=== PATIENT | female | born 1935 | race Caucasian/White ===

== ENCOUNTER 2022-11-29 13:17 | Outpatient (CLI) | payer MEDICARE, BC, SELFPAY | END 2022-11-29 13:18 | disposition home or self-care (01) | LOC: AMB 12-05 09:27 | PROVIDERS: PCP Nurse Practitioner Family; Visit Provider Family Medicine | DX: S09.90XA Unspecified injury of head, initial encounter (principal); W01.190A Fall on same level from slipping, tripping and stumbling with subsequent striking against furniture, initial encounter; Y92.000 Kitchen of unspecified non-institutional (private) residence as the place of occurrence of the external cause | CPT/HCPCS: A0425; A0427 ==

== ENCOUNTER 2022-11-29 13:58 | Emergency (ER) | payer MEDICARE, BC, SELFPAY ==
[2022-11-29 14:01] VITALS: BP 149/83; PULSE 72; RESP 18; TEMP 36.8; O2SAT 94; BMI 25.8
--- NOTE | 2022-11-29 14:04 | CRLHL7_ITS ---
For Patients: As a result of the Cures Act, medical imaging exams and procedure reports are released immediately into your electronic medical record. You may view this report before your referring provider. If you have questions, please contact your health care provider. INDICATION: Trauma. TECHNIQUE: CT cervical spine without contrast. COMPARISON: None. FINDINGS: Vertebrae: Alignment is normal. There are no fractures or suspicious bony lesions. Discs and facet joints: There are diffuse degenerative changes in the disc spaces and facet joints. Extraspinal findings: Paraspinous soft tissues are unremarkable. IMPRESSION: 1. No sign of acute injury. 2. Multilevel degenerative spondylosis. Please note that all CT scans at this facility use dose modulation, iterative reconstruction, and/or weight-based dosing when appropriate to reduce radiation dose to as low as reasonably achievable. Dictated by Angeli Lorenzo MD @ 11/29/2022 3:25:02 PM (Electronically Signed)
--- NOTE | 2022-11-29 14:04 | CRLHL7_ITS ---
For Patients: As a result of the Century Cures Act, medical imaging exams and procedure reports are released immediately into your electronic medical record. You may view this report before your referring provider. If you have questions, please contact your health care provider. INDICATION: Fall. TECHNIQUE: CT head without contrast. COMPARISON: None. FINDINGS: CSF spaces: Within normal limits for age. Brain parenchyma and extra-axial spaces: The velazco-white differentiation is normal. No sign of mass, hemorrhage, or midline shift. No extra-axial fluid collection. Skull base and calvarium: Mucosal thickening in the left maxillary sinus. Otherwise, the visualized paranasal sinuses and mastoid air cells demonstrate no acute or significant findings. The visualized orbits are grossly unremarkable. No skull fractures. IMPRESSION: No intracranial hemorrhage identified. No skull fractures identified. Please note that all CT scans at this facility use dose modulation, iterative reconstruction, and/or weight-based dosing when appropriate to reduce radiation dose to as low as reasonably achievable. Dictated by Angeli Lorenzo MD @ 11/29/2022 3:22:29 PM (Electronically Signed)
--- NOTE | 2022-11-29 14:12 | ED.FALL ---
HPI - Fall General Date Seen: 11/29/22 Chief Complaint: Fall/Minor Trauma Stated Complaint: Fall Time Seen by Provider: 11/29/22 14:04 Source: patient, family, EMS, RN notes reviewed and old records reviewed Mode of arrival: EMS Limitations: no limitations and altered mental status History of Present Illness HPI Narrative: Patient is a very nice 86-year-old lady with suffers from moderate dementia. She was at home with her daughter, when she turned, and she caught her feet on the rug. And fell, striking the left side of her head, on drawer. No loss of consciousness, she has a laceration to left ear. She also has pain in her neck. She is brought in by EMS for assessment. She denies nausea, denies diplopia can not remember her daughter's name, but this is really normal. She is not on any blood thinners, glucose was 163. MD complaint: fall Onset (ago): minute(s) (20) Fall witnessed: yes, by family Place fall occurred: home Loss of consciousness: No Prolonged down time: no Symptoms prior to fall: none Context: tripped/slipped Location of injury: head and neck Severity: moderate Associated symptoms (after fall): denies Related Data Home Medications Medication Instructions Recorded Confirmed acetaminophen 325 mg tablet 325 mg PO PRN 11/24/21 11/24/21 calcium carbonate 1 tab PO PRN 11/24/21 11/24/21 estradiol 0.01% (0.1 mg/gram) 2 vaginal .3X Per Week 11/24/21 11/24/21 vaginal cream folic acid PO 11/24/21 11/24/21 gabapentin 600 mg tablet 600 mg PO TID 11/24/21 11/29/22 methotrexate sodium 2.5 mg tablet 2.5 mg PO .Every 7 Days 11/24/21 11/29/22 multivitamin (Multiple Vitamins 1 tab PO QDAY 11/24/21 11/29/22 tablet) omeprazole 20 mg tablet,delayed 20 mg PO QDAY 11/24/21 11/29/22 release carbidopa 25 mg-levodopa 100 mg 2 tab PO TID 11/29/22 11/29/22 tablet duloxetine 20 mg capsule,delayed 20 mg PO BID 11/29/22 11/29/22 release folic acid 1 mg tablet 1 mg PO DAILY 11/29/22 11/29/22 Previous Rx's Medication Instructions Recorded cephalexin 500 mg capsule 500 mg PO BID #14 caps 11/29/22 Allergies Allergy/AdvReac Type Severity Reaction Status Date / Time No Known Allergies Allergy Unknown Verified 11/29/22 14:01 Review of Systems Status of ROS: Reports: 10 or more systems reviewed and unremarkable except as noted in History and below PFSH PFS Medical History Parkinson's disease ?G20 - Parkinson's disease (ICD-10) Back problem ?M53.9 - Dorsopathy, unspecified (ICD-10) Arthritis ?M19.90 - Unspecified osteoarthritis, unspecified site (ICD-10) Rheumatoid arthritis ?M06.9 - Rheumatoid arthritis, unspecified (ICD-10) Incontinence ?R32 - Unspecified urinary incontinence (ICD-10) GERD (gastroesophageal reflux disease) ?K21.9 - Gastro-esophageal reflux disease without esophagitis (ICD-10) Surgical History 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.659 - Presence of unspecified artificial knee joint (ICD-10) Family History Mother Breast cancer Sister Breast cancer Father H/O cancer of gall bladder Paternal Grandfather Rectal cancer Social History Smoking Status: Former smoker Do you use any of these nicotine containing products: None Second hand tobacco smoke exposure: No How often do you have a drink containing alcohol: never How often do you have six or more drinks on one occasion: Never AUDIT-C Alcohol total score: 0 Non-prescribed substance use: denies use service: No Exam Narrative: Exam Narrative: Patient is seen in room 6, she is in no apparent distress, speaking to me normally, Knows person but not place or time. Pupils equal round reactive to light her TMs are normal, she has lacerations to her left the helix of her ear, these will need to be looked at closer, her neck has good range of motion, flexion extension some tenderness on the left lateral side. I do not see any tenderness or change in her shoulders, clavicles the upper arms move normally, oropharynx is normal. Chest is clear heart sounds are normal, she moves all extremities independently well her pelvis is normal stable her distal and proximal muscle strength is normal. Const: Vital Signs, click to edit/add: Vital Signs - 24 hr 11/29/22 14:01 Temperature 98.3 F Pulse Rate [Right Pulse Oximeter] 72 Respiratory Rate 18 Blood Pressure [Ri ght Upper Arm] 149/83 H Pulse Oximetry 94 Oxygen Delivery Me thod Room Air Course Course Hospital Course: I was able to repair the helix of the left ear, after using 0.25% bupivacaine, intradermal block. Wound was then cleaned out with normal saline x2 150 mL, there was some exposed and a tear within the cartilage of the ear length of the tear of the cartilage was approximately 3 cm, wound was approximately 3.5 cm, fortunately it was not a through and through laceration, as the back part of the skin of the helix was intact. Two simple 4-0 Vicryl sutures were used to approximate of cartilage. I then used 4 simple 4-0 sutures to approximate the dermal skin on the helix. Normal pressure dressing was applied to the he looks after 1st fashioning a dressing. Bacitracin was applied Vital Signs Vital signs: Initial Vital Signs Temperature 98.3 F 11/29/22 14:01 Temperature Source Temporal Artery Scan 11/29/22 14:01 Pulse Rate 72 11/29/22 14:01 Pulse Rhythm Regular 11/29/22 14:01 Pulse Strength 3+ Normal 11/29/22 14:01 Respiratory Rate 18 11/29/22 14:01 Blood Pressure 149/83 H 11/29/22 14:01 Blood Pressure Mean 105 11/29/22 14:01 Blood Pressure Position Sitting 11/29/22 14:01 Pulse Oximetry 94 11/29/22 14:01 Oxygen Delivery Method Room Air 11/29/22 14:01 Vital Signs Temperature 98.3 F 11/29/22 14:01 Pulse Rate 72 11/29/22 14:01 Respiratory Rate 18 11/29/22 14:01 Blood Pressure 149/83 H 11/29/22 14:01 Pulse Oximetry 94 11/29/22 14:01 Oxygen Delivery Method Room Air 11/29/22 14:01 Temperature 98.3 F 11/29/22 14:01 Pulse Rate 72 11/29/22 14:01 Respiratory Rate 18 11/29/22 14:01 Blood Pressure 149/83 H 11/29/22 14:01 Pulse Oximetry 94 11/29/22 14:01 Oxygen Delivery Method Room Air 11/29/22 14:01 MDM - Fall MDM Narrative Medical decision making narrative: Life-threatening differential diagnosis is considered include: Subarachnoid hemorrhage, subdural hemorrhage, epidural hemorrhage. Other differential diagnosis considered include concussion, closed head injury, or neck fracture. Medical Records Attestation: I reviewed the patient's medical records. Imaging Data CT scan - head: Attestation: I have reviewed the pertinent imaging results. My impression: Negative CT of head neck Radiologist's impression: Patient: [facility] Facility: [facility] Site . Site : 1935 Study: CT Head WITHOUT-11/29/2022 2:44:06 PM Ordering Physician: Esther Owens Final Report: INDICATION: Fall. TECHNIQUE: CT head without contrast. COMPARISON: None. FINDINGS: CSF spaces: Within normal limits for age. Brain parenchyma and extra-axial spaces: The velazco-white differentiation is normal. No sign of mass, hemorrhage, or midline shift. No extra-axial fluid collection. Skull base and calvarium: Mucosal thickening in the left maxillary sinus. Otherwise, the visualized paranasal sinuses and mastoid air cells demonstrate no acute or significant findings. The visualized orbits are grossly unremarkable. No skull fractures. IMPRESSION: No intracranial hemorrhage identified. No skull fractures identified. Please note that all CT scans at this facility use dose modulation, iterative reconstruction, and/or weight-based dosing when appropriate to reduce radiation dose to as low as reasonably achievable. Dictated by Angeli Lorenzo MD @ 11/29/2022 3:22:29 PM (Electronic Signature) Patient: [facility] Facility: [facility] Site . Site : 1935 Study: CT Spine Cervical -11/29/2022 2:44:21 PM Ordering Physician: Esther Owens Final Report: INDICATION: Trauma. TECHNIQUE: CT cervical spine without contrast. COMPARISON: None. FINDINGS: Vertebrae: Alignment is normal. There are no fractures or suspicious bony lesions. Discs and facet joints: There are diffuse degenerative changes in the disc spaces and facet joints. Extraspinal findings: Paraspinous soft tissues are unremarkable. IMPRESSION: 1. No sign of acute injury. 2. Multilevel degenerative spondylosis. Please note that all CT scans at this facility use dose modulation, iterative reconstruction, and/or weight-based dosing when appropriate to reduce radiation dose to as low as reasonably achievable. Dictated by Angeli Lorenzo MD @ 11/29/2022 3:25:02 PM (Electronic Signature) ECG Data Attestation: I personally reviewed and interpreted this ECG as follows: Prior ECG tracings: not available for review Interpretation: EKG shows normal sinus rhythm no acute changes. Discharge Plan Discharge Clinical Impression: Acute neck pain, Dementia, Head injury, Fall, Laceration of ear, external, left, complicated Patient Disposition: Home w/ Parent or Adult Condition: Improved Instructions: Laceration (ED), Laceration (DC), Neck Pain (ED), Acute Neck Pain (ED) Additional Instructions: Patient will be discharged home, antibiotics to try to prevent infection, did have put 2 deep stitches that are dissolvable into cartilage of the ear, outside stitches should come out in 10 days. This can be done with primary care, pressure dressing on until tomorrow, after that he can come off. Bacitracin daily to the wound. Return here if increasing redness swelling or signs of infection. Signs of a head injury, which are unlikely to occur given the normal CT but still possible, include unequal pupils vomiting, weakness, worsening headache, please come back these occur , Tylenol is an excellent treatment for headache. Activity Level: Light activity Prescriptions: New cephalexin 500 mg capsule 500 mg PO BID Qty: 14 0RF No Action estradiol 0.01 % (0.1 mg/gram) cream 2 vaginal .3X Per Week methotrexate sodium 2.5 mg tablet 2.5 mg PO .Every 7 Days Rx Instructions: take 6 tablets once a week on Saturday acetaminophen 325 mg tablet 325 mg PO PRN Rx Instructions: NO MORE THAN 4000 MG/DAY omeprazole 20 mg tablet,delayed release (DR/EC) 20 mg PO QDAY multivitamin [Multiple Vitamins] Tablet 1 tab PO QDAY folic acid PO calcium carbonate [Calcium 500] 1 tab PO PRN gabapentin 600 mg tablet 600 mg PO TID folic acid 1 mg tablet 1 mg PO DAILY duloxetine 20 mg capsule,delayed release(DR/EC) 20 mg PO BID carbidopa-levodopa 25-100 mg tablet 2 tab PO TID Follow Up/Referrals: Mirlande Seals CNP [Primary Care Provider] - Stand Alone Forms: [employer] Info Instructions
[2022-11-29] MEDS: ACETAMINOPHEN 500 MG TABLET 1000 MG PO (14:14)
[2022-11-29] MEDS: LIDOCAINE/EPINEP/TETRACAINE 3 ML GEL..ML. TOPICAL (14:15)
--- NOTE | 2022-11-29 14:27 | ED.NURSE ---
Laceration to the LEFT ear extending from the top of the pinna down to the earlobe. Dried blood noted around the wound as well as some oozing blood. Ear is dark purple and red in appearance. LET gel applied as ordered to the laceration. Dr. Santana notified of application time.
[2022-11-29] MEDS: cephALEXin 500 MG CAPSULE PO (16:27)
== END 2022-11-29 16:40 | disposition home or self-care (01) ==
PROVIDERS: Emergency Provider Family Medicine; PCP Nurse Practitioner Family
DX: S01.322A Laceration with foreign body of left ear, initial encounter (principal); M54.2 Cervicalgia; F03.90 Unspecified dementia, unspecified severity, without behavioral disturbance, psychotic disturbance, mood disturbance, and anxiety; W18.00XA Striking against unspecified object with subsequent fall, initial encounter
CPT/HCPCS: 12013; 70450; 72125; 93005; 99284; 99285; A9270

== ENCOUNTER 2022-12-12 11:42 | Outpatient (CLI) | payer MEDICARE, BC, SELFPAY | END 2022-12-12 11:43 | disposition home or self-care (01) | LOC: AMB 12-14 12:45 | PROVIDERS: Visit Provider Family Medicine | DX: R41.82 Altered mental status, unspecified (principal) | CPT/HCPCS: A0425; A0427 ==

== ENCOUNTER 2022-12-12 12:14 | Observation (INO) | payer MEDICARE, BC, SELFPAY ==
[2022-12-12] VITALS (51 sets, daily range): BP systolic 73–198; BP diastolic 20–157; PULSE 75–105; RESP 13–24; TEMP 36.4–37.4; O2SAT 91–97; BMI 25.8; BMI 23.7
--- NOTE | 2022-12-12 | CRLHL7_ITS ---
For Patients: As a result of the Century Cures Act, medical imaging exams and procedure reports are released immediately into your electronic medical record. You may view this report before your referring provider. If you have questions, please contact your health care provider. INDICATION: Fall, found down TECHNIQUE: Noncontrast axial CT of the head. Coronal and sagittal reformats. Bone and soft tissue algorithms. COMPARISON: CT head 11/29/2022 FINDINGS: Mild occipital scalp edema. No skull fracture or acute intracranial hemorrhage. No midline shift, hydrocephalus, or herniation. Delgado-white matter differentiation is grossly maintained. Generalized cerebral volume loss. Patchy white matter hypoattenuation typical of chronic microangiopathy. Mild mucosal thickening throughout the left maxillary sinus. No air-fluid level or mastoid effusion. Bilateral lens implants IMPRESSION: 1. Mild occipital scalp edema, without evidence of skull fracture or acute intracranial hemorrhage. 2. Generalized cerebral volume loss and mild chronic microangiopathy changes. Please note that all CT scans at this facility use dose modulation, iterative reconstruction, and/or weight-based dosing when appropriate to reduce radiation dose to as low as reasonably achievable. Dictated by Eliana Fountain MD @ 12/12/2022 1:14:37 PM (Electronically Signed)
--- NOTE | 2022-12-12 | CRLHL7_ITS ---
For Patients: As a result of the Century Cures Act, medical imaging exams and procedure reports are released immediately into your electronic medical record. You may view this report before your referring provider. If you have questions, please contact your health care provider. INDICATION: Fall, found down. COMPARISON: CT of the cervical spine 11/29/2022. TECHNIQUE: CT of the cervical spine without IV contrast. Coronal and sagittal reconstructions. FINDINGS: There is a chronic nondisplaced fracture of the right C7 facet (series 5, image 85 and series 4, image 24). No new acute fracture or traumatic malalignment of the cervical spine. Vertebral body heights are well maintained. Normal vertebral body alignment. Spondylotic changes including endplate spurring, facet arthropathy, and disc space narrowing. Calcified pannus about the dens. Multilevel neural foraminal narrowing most severe on the right at C6-C7. Mild spinal canal stenosis at C6-C7. No prevertebral soft tissue swelling. Visualized intracranial contents are unremarkable. The mastoid air cells are clear. Mild soft tissue swelling in the occipital scalp. Small calcified right thyroid nodule. The lung apices are clear. IMPRESSION: 1. No acute fracture or traumatic malalignment of the cervical spine. 2. 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 3. Spondylotic changes of the cervical spine as described above. 4. Mild soft tissue swelling in the occipital scalp. Please note that all CT scans at this facility use dose modulation, iterative reconstruction, and/or weight-based dosing when appropriate to reduce radiation dose to as low as reasonably achievable. Dictated by Christina Graham MD @ 12/12/2022 1:34:03 PM (Electronically Signed)
--- NOTE | 2022-12-12 12:47 | ED.NURSE ---
Patient met in ambulance bay with MD and RN. Report was given and patient brought straight to CT. C-collar placed on scene by EMS.
--- NOTE | 2022-12-12 12:52 | CRLHL7_ITS ---
For Patients: As a result of the Cures Act, medical imaging exams and procedure reports are released immediately into your electronic medical record. You may view this report before your referring provider. If you have questions, please contact your health care provider. INDICATION: Fall. TECHNIQUE: Chest 2 views. COMPARISON: None. FINDINGS: Cardiovascular and mediastinum: Heart size and vasculature are normal in caliber and appearance. Lungs and pleural spaces: Lungs are clear. No sign of infiltrate or mass. No sign of pleural effusion. No pneumothorax. Bones and soft tissues: No significant findings. IMPRESSION: No acute or significant findings. Dictated by Hermelindo Barger MD @ 12/12/2022 2:53:45 PM (Electronically Signed)
[2022-12-12 13:18] LABS: Basophils Absolute Auto 0.03 K/uL (0.00-0.30); Basophils Percent Auto 0.3 % (0.0-3.0); Eosinophils Absolute Auto 0.01 K/uL (0.00-0.50); Eosinophils Percent Auto 0.1 % (0.0-7.0); Hematocrit 48.1 % (33.0-51.0); Hemoglobin* 15.4 gm/dL (12.0-16.0); Immature Granulocytes Abs Auto 0.01 K/uL (0.00-0.30); Immature Granulocytes Pct Auto 0.1 %; Lymphocytes Percent Auto 7.6 % (20-44); Mean Corpuscular HGB Conc 32 gm/dL (32-36); Mean Corpuscular Hemoglobin 31 pg (26-34); Mean Corpuscular Volume 97 fL (80-100); Monocytes Percent Auto 8.2 % (0.0-11.0); Neutrophils Percent Auto 83.7 % (42.0-72.0); Platelet Count* 305 K/uL (140-440); RDW Coefficient of Variation % 12.7 % (11.5-15.5); Red Blood Count 4.97 m/uL (4.00-5.20); White Blood Count* 9.96 K/uL (4.50-11.00)
[2022-12-12 13:19] LABS: Slide Review Reflex No
[2022-12-12 13:35] LABS: Chloride* 103 mmol/L (96-114); Sodium* 139 mmol/L (135-149)
[2022-12-12 13:36] LABS: Potassium* 3.5 mmol/L (3.6-5.1)
[2022-12-12 13:38] LABS: Appearance Urine Clear (Clear); Bilirubin Urine Negative (Negative); Blood Urine Negative (Negative); Color Urine Yellow (Yellow); Glucose Urine Negative (Negative); Ketones Urine 2+ (Negative); Leukocyte Esterase Urine 1+ (Negative); Nitrite Urine Negative (Negative); Protein Urine Trace (Negative); Urobilinogen Urine 0.2 (0.2-1.0); pH Urine 7.5 (5.0-8.5)
[2022-12-12 13:38] LABS: Anion Gap 10 mEq/L (7-15); Carbon Dioxide* 26 mmol/L (20-32); Creatinine* 0.5 mg/dL (0.5-1.5); Est. Creatinine Clearance* 39.27; Estimated Glomerular Filt Rate 91 ml/min
[2022-12-12 13:39] LABS: Blood Urea Nitrogen* 12 mg/dL (7-30); Calcium* 9.3 mg/dL (8.4-10.6); Glucose* 114 mg/dL (60-115)
[2022-12-12 13:48] LABS: Bacteria Urine Few; RBC Urine 0-2 (0-2); Squamous Epithelial Cell Urine Few (None-Few)
[2022-12-12 13:53] LABS: Ethanol* < 0.01 % (0.01-0.03)
[2022-12-12] MEDS: 0.9 % SODIUM CHLORIDE 1000 ml 1,000 ML IV (14:13)
[2022-12-12 14:50] LABS: Creatine Kinase* 677 U/L (41-117)
[2022-12-12 15:03] LABS: PCR FLU A Negative PCR FLU A (Negative); PCR FLU B Negative PCR FLU B (Negative); PCR RSV Negative PCR RSV (Negative)
[2022-12-12 15:17] LABS: SARS PCR* Negative SARS-CoV-2 (Negative)
--- NOTE | 2022-12-12 15:53 | ED_ITS ---
HPI - Fall General Date Seen: 12/12/22 Chief Complaint: Altered Mental Status Stated Complaint: fall Time Seen by Provider: 12/12/22 12:28 Source: patient, family, EMS and RN notes reviewed Mode of arrival: EMS Limitations: no limitations History of Present Illness HPI Narrative: Patient is a very nice 86-year-old female who initially says presents as a red fall, she was found by her daughter on the floor all night, she lives by herself, I had seen her 2 weeks before for another fall, where she lacerated her left ear, I talked with her daughter(different daughter) at that time about po ssible admission, as I was worried about her well-being. They said they were just going to increase the amount of time the spent with her, initially Darrell does not even talk to me, but when she warmed up to me she was able to speak to me. She says she is not in any pain, she has no weakness, she does not remember being on the floor falling at her home. Her daughter tells me that she does have moderate dementia along with Parkinson's, no history of fevers chills she was eating normally up till today when she did not eat her lunch. MD complaint: fall Onset (ago): day(s) Fall from: standing Fall witnessed: no Place fall occurred: home Prolonged down time: yes Symptoms prior to fall: none Related Data Home Medications Medication Instructions Recorded Confirmed acetaminophen 325 mg tablet 325 mg PO PRN 11/24/21 11/24/21 calcium carbonate 1 tab PO PRN 11/24/21 11/24/21 estradiol 0.01% (0.1 mg/gram) 2 vaginal .3X Per Week 11/24/21 11/24/21 vaginal cream folic acid PO 11/24/21 11/24/21 gabapentin 600 mg tablet 600 mg PO TID 11/24/21 12/12/22 methotrexate sodium 2.5 mg tablet 2.5 mg PO .Every 7 Days 11/24/21 11/29/22 multivitamin (Multiple Vitamins 1 tab PO QDAY 11/24/21 12/12/22 tablet) omeprazole 20 mg tablet,delayed 20 mg PO DAILY 11/24/21 12/12/22 release carbidopa 25 mg-levodopa 100 mg 2 tab PO TID 11/29/22 11/29/22 tablet duloxetine 20 mg capsule,delayed 20 mg PO BID 11/29/22 12/12/22 release folic acid 1 mg tablet 1 mg PO DAILY 11/29/22 11/29/22 Allergies Allergy/AdvReac Type Severity Reaction Status Date / Time No Known Allergies Allergy Unknown Verified 11/29/22 14:01 Review of Systems Status of ROS: Reports: unobtainable due to medical condition and unobtainable due to mental status [facility] History Parkinson's disease ?G20 - Parkinson's disease (ICD-10) Back problem ?M53.9 - Dorsopathy, unspecified (ICD-10) Arthritis ?M19.90 - Unspecified osteoarthritis, unspecified site (ICD-10) Rheumatoid arthritis ?M06.9 - Rheumatoid arthritis, unspecified (ICD-10) Incontinence ?R32 - Unspecified urinary incontinence (ICD-10) GERD (gastroesophageal reflux disease) ?K21.9 - Gastro-esophageal reflux disease without esophagitis (ICD-10) Surgical History 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.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 - Presence of unspecified artificial knee joint (ICD-10) Family History Mother Breast cancer Sister Breast cancer Father H/O cancer of gall bladder Paternal Grandfather Rectal cancer Social History Smoking Status: Former smoker Do you use any of these nicotine containing products: None Second hand tobacco smoke exposure: No How often do you have a drink containing alcohol: never How often do you have six or more drinks on one occasion: Never AUDIT-C Alcohol total score: 0 Non-prescribed substance use: denies use service: No Exam Narrative: Exam Narrative: On examination stabilization room 1, she is in no apparent distress she does answer my questions although clearly she has memory impairment, along not been able to follow. Pupils equal round reactive to light there is no scleral icterus redness or TMs are normal bilaterally oropharynx is normal. Slight subtle swelling is noted on the top of her head on the right side. No bruising is noted, cranial nerves 3-12 are normal her chest is clear bilaterally no wheezing crackles noted she has bruising over the right posterior chest region, which I suspect is from a fall. She moves all extremities independently and well good route jumper strength, her abdomen is soft, there is no organomegaly moves all extremities independently and well her pelvis is normal, no evidence of any hip pain on movement, moves lower extremities normal. Const: Vital Signs, click to edit/add: Vital Signs - 24 hr 12/12/22 12:34 12/12/22 12:34 12/12/22 12:35 Temperature 97.6 F Pulse Rate 80 79 Pulse Rate [Pulse Oximeter] 76 Respiratory Rate 13 Blood Pressure 160/95 H Blood Pressure [Ri ght Upper Arm] 169/94 H Pulse Oximetry 94 94 95 Oxygen Delivery Me thod Room Air 12/12/22 12:37 12/12/22 12:44 12/12/22 12:45 Temperature Pulse Rate 75 78 79 Pulse Rate [Pulse Oximeter] Respiratory Rate Blood Pressure 169/94 H 151/101 H Blood Pressure [Ri ght Upper Arm] Pulse Oximetry 95 95 96 Oxygen Delivery Me thod 12/12/22 12:47 12/12/22 12:52 12/12/22 12:57 Temperature Pulse Rate 80 79 Pulse Rate [Pulse Oximeter] Respiratory Rate Blood Pressure 180/143 H 193/87 H 195/157 H Blood Pressure [Ri ght Upper Arm] Pulse Oximetry 93 93 Oxygen Delivery Me thod 12/12/22 13:00 12/12/22 13:02 12/12/22 13:09 Temperature Pulse Rate 83 81 81 Pulse Rate [Pulse Oximeter] Respiratory Rate Blood Pressure 187/95 H 73/20 L Blood Pressure [Ri ght Upper Arm] Pulse Oximetry 93 93 94 Oxygen Delivery Me thod 12/12/22 13:11 12/12/22 13:15 12/12/22 13:26 Temperature Pulse Rate 78 83 94 Pulse Rate [Pulse Oximeter] Respiratory Rate Blood Pressure 182/88 H 149/121 H Blood Pressure [Ri ght Upper Arm] Pulse Oximetry 93 94 96 Oxygen Delivery Me thod 12/12/22 13:30 12/12/22 13:33 12/12/22 13:58 Temperature Pulse Rate 79 79 80 Pulse Rate [Pulse Oximeter] Respiratory Rate Blood Pressure 163/81 H Blood Pressure [Ri ght Upper Arm] Pulse Oximetry 95 94 94 Oxygen Delivery Me thod 12/12/22 14:00 12/12/22 14:03 12/12/22 14:04 Temperature Pulse Rate 78 80 82 Pulse Rate [Pulse Oximeter] Respiratory Rate Blood Pressure 172/77 H Blood Pressure [Ri ght Upper Arm] Pulse Oximetry 96 95 97 Oxygen Delivery Me thod 12/12/22 14:12 12/12/22 14:15 12/12/22 14:22 Temperature Pulse Rate 79 78 76 Pulse Rate [Pulse Oximeter] Respiratory Rate Blood Pressure 177/68 H 169/98 H Blood Pressure [Ri ght Upper Arm] Pulse Oximetry 95 93 95 Oxygen Delivery Me thod 12/12/22 14:30 12/12/22 14:32 12/12/22 14:42 Temperature Pulse Rate 79 78 81 Pulse Rate [Pulse Oximeter] Respiratory Rate Blood Pressure 179/80 H 188/98 H Blood Pressure [Ri ght Upper Arm] Pulse Oximetry 93 95 94 Oxygen Delivery Me thod 12/12/22 14:45 12/12/22 14:52 12/12/22 15:00 Temperature Pulse Rate 80 80 89 Pulse Rate [Pulse Oximeter] Respiratory Rate Blood Pressure 173/85 H Blood Pressure [Ri ght Upper Arm] Pulse Oximetry 94 93 93 Oxygen Delivery Me thod 12/12/22 15:02 12/12/22 15:03 12/12/22 15:12 Temperature Pulse Rate 82 83 80 Pulse Rate [Pulse Oximeter] Respiratory Rate Blood Pressure 184/94 H 181/81 H Blood Pressure [Ri ght Upper Arm] Pulse Oximetry 93 92 94 Oxygen Delivery Me thod 12/12/22 15:15 12/12/22 15:22 Temperature Pulse Rate 82 85 Pulse Rate [Pulse Oximeter] Respiratory Rate Blood Pressure 181/76 H Blood Pressure [Ri ght Upper Arm] Pulse Oximetry 92 92 Oxygen Delivery Me thod Course Course Hospital Course: I spoke to the patient's family, along with the patient, I then spoke to Dr. Amaro our hospitalist, with admitted to the hospital under observation status. Vital Signs Vital signs: Initial Vital Signs Temperature 97.6 F 12/12/22 12:34 Temperature Source Temporal Artery Scan 12/12/22 12:34 Pulse Rate 80 12/12/22 12:34 Respiratory Rate 13 12/12/22 12:34 Blood Pressure 160/95 H 12/12/22 12:34 Blood Pressure Mean 116 H 12/12/22 12:34 Pulse Oximetry 94 12/12/22 12:34 Oxygen Delivery Method Room Air 12/12/22 12:34 Vital Signs Temperature 97.6 F 12/12/22 12:34 Pulse Rate 80 12/12/22 12:34 Respiratory Rate 13 12/12/22 12:34 Blood Pressure 160/95 H 12/12/22 12:34 Pulse Oximetry 94 12/12/22 12:34 Oxygen Delivery Method Room Air 12/12/22 12:34 Temperature 97.6 F 12/12/22 12:34 Pulse Rate 85 12/12/22 15:22 Respiratory Rate 13 12/12/22 12:34 Blood Pressure 181/76 H 12/12/22 15:22 Pulse Oximetry 92 12/12/22 15:22 Oxygen Delivery Method Room Air 12/12/22 12:34 MDM - Fall MDM Narrative Medical decision making narrative: Life-threatening differential diagnosis considered include stroke, coronary artery disease, pneumonia, and heart failure. Other differential diagnosis include but are not limited to electrolyte imbalances, anemia, medication reactions, and urinary tract infection Differential Diagnosis Differential diagnosis: Likely syncope, concussion with loss of consciousness and concussion without loss of consciousness Medical Records Attestation: I reviewed the patient's medical records. Lab Data Attestation: I reviewed the patient's lab results. Labs: Lab Results 12/12/22 12/12/22 12/12/22 Range/Units 13:06 13:09 13:28 WBC 9.96 (4.50-11.00) K/uL RBC 4.97 (4.00-5.20) m/uL Hgb 15.4 (12.0-16.0) gm/dL Hct 48.1 (33.0-51.0) % MCV 97 (80-100) fL MCH 31 (26-34) pg MCHC 32 (32-36) gm/dL RDW Coeff of Justen 12.7 (11.5-15.5) % Plt Count 305 (140-440) K/uL Neut % (Auto) 83.7 H (42.0-72.0) % Lymph % (Auto) 7.6 L (20-44) % Ferry % (Auto) 8.2 (0.0-11.0) % Eos % (Auto) 0.1 (0.0-7.0) % Baso % (Auto) 0.3 (0.0-3.0) % Neut # (Auto) 8.30 H (1.7-7.0) K/uL Lymph # (Auto) 0.80 L (0.90-2.90) K/uL Ferry # (Auto) 0.80 (0.00-0.90) K/UL Eos # (Auto) 0.01 (0.00-0.50) K/uL Baso # (Auto) 0.03 (0.00-0.30) K/uL Abs Immat Gran (auto) 0.01 (0.00-0.30) K/uL Imm/Tot Granulo (auto) 0.1 % Sodium 139 (135-149) mmol/L Potassium 3.5 L (3.6-5.1) mmol/L Chloride 103 (96-114) mmol/L Carbon Dioxide 26 (20-32) mmol/L Anion Gap 10 (7-15) mEq/L BUN 12 (7-30) mg/dL Creatinine 0.5 (0.5-1.5) mg/dL Estimated Creat Clear 39.27 Estimated GFR 91 ml/min Glucose 114 (60-115) mg/dL Calcium 9.3 (8.4-10.6) mg/dL Total Creatine Kinase 677 H (41-117) U/L Urine Color Yellow (Yellow) Urine Appearance Clear (Clear) Urine pH 7.5 (5.0-8.5) Ur Specific [place] 1.020 (1.000-1.030) Urine Protein Trace A (Negative) Urine Glucose (UA) Negative (Negative) Urine Ketones 2+ A (Negative) Urine Blood Negative (Negative) Urine Nitrite Negative (Negative) Urine Bilirubin Negative (Negative) Urine Urobilinogen 0.2 (0.2-1.0) Ur Leukocyte Esterase 1+ A (Negative) Urine RBC 0-2 (0-2) Urine WBC 5-10 A (0-5) Ur Squamous Epith Cells Few (None-Few) Urine Bacteria Few A (None) Ethyl Alcohol < 0.01 L (0.01-0.03) % SARS-CoV-2 (PCR) (Negative) Influenza Type A (PCR) (Negative) Influenza Type B (PCR) (Negative) RSV (PCR) (Negative) POC Troponin I 0.00 L (0.01-0.04) ng/ml 12/12/22 Range/Units 14:18 WBC (4.50-11.00) K/uL RBC (4.00-5.20) m/uL Hgb (12.0-16.0) gm/dL Hct (33.0-51.0) % MCV (80-100) fL MCH (26-34) pg MCHC (32-36) gm/dL RDW Coeff of Justen (11.5-15.5) % Plt Count (140-440) K/uL Neut % (Auto) (42.0-72.0) % Lymph % (Auto) (20-44) % Ferry % (Auto) (0.0-11.0) % Eos % (Auto) (0.0-7.0) % Baso % (Auto) (0.0-3.0) % Neut # (Auto) (1.7-7.0) K/uL Lymph # (Auto) (0.90-2.90) K/uL Ferry # (Auto) (0.00-0.90) K/UL Eos # (Auto) (0.00-0.50) K/uL Baso # (Auto) (0.00-0.30) K/uL Abs Immat Gran (auto) (0.00-0.30) K/uL Imm/Tot Granulo (auto) % Sodium (135-149) mmol/L Potassium (3.6-5.1) mmol/L Chloride (96-114) mmol/L Carbon Dioxide (20-32) mmol/L Anion Gap (7-15) mEq/L BUN (7-30) mg/dL Creatinine (0.5-1.5) mg/dL Estimated Creat Clear Estimated GFR ml/min Glucose (60-115) mg/dL Calcium (8.4-10.6) mg/dL Total Creatine Kinase (41-117) U/L Urine Color (Yellow) Urine Appearance (Clear) Urine pH (5.0-8.5) Ur Specific [place] (1.000-1.030) Urine Protein (Negative) Urine Glucose (UA) (Negative) Urine Ketones (Negative) Urine Blood (Negative) Urine Nitrite (Negative) Urine Bilirubin (Negative) Urine Urobilinogen (0.2-1.0) Ur Leukocyte Esterase (Negative) Urine RBC (0-2) Urine WBC (0-5) Ur Squamous Epith Cells (None-Few) Urine Bacteria (None) Ethyl Alcohol (0.01-0.03) % SARS-CoV-2 (PCR) Negative SARS-CoV-2 (Negative) Influenza Type A (PCR) Negative PCR FLU A (Negative) Influenza Type B (PCR) Negative PCR FLU B (Negative) RSV (PCR) Negative PCR RSV (Negative) POC Troponin I (0.01-0.04) ng/ml Imaging Data CT scan - head: Attestation: I have reviewed the pertinent imaging results. Radiologist's impression: Patient: [facility] Facility: [facility] Site . Site : 1935 Study: XRay Chest 2V-12/12/2022 1:58:58 PM Ordering Physician: Esther Owens Final Report: INDICATION: Fall. TECHNIQUE: Chest 2 views. COMPARISON: None. FINDINGS: Cardiovascular and mediastinum: Heart size and vasculature are normal in caliber and appearance. Lungs and pleural spaces: Lungs are clear. No sign of infiltrate or mass. No sign of pleural effusion. No pneumothorax. Bones and soft tissues: No significant findings. IMPRESSION: No acute or significant findings. Dictated by Hermelindo Barger MD @ 12/12/2022 2:53:45 PM (Electronic Signature) Patient: [facility] Facility: [facility] Site . Site : 1935 Study: CT Spine Cervical W/O - CODE TRAUMA-12/12/2022 12:30:18 PM Ordering Physician: Esther Owens Final Report: INDICATION: Fall, found down. COMPARISON: CT of the cervical spine 11/29/2022. TECHNIQUE: CT of the cervical spine without IV contrast. Coronal and sagittal reconstructions. FINDINGS: There is a chronic nondisplaced fracture of the right C7 facet (series 5, image 85 and series 4, image 24). No new acute fracture or traumatic malalignment of the cervical spine. Vertebral body heights are well maintained. Normal vertebral body alignment. Spondylotic changes including endplate spurring, facet arthropathy, and disc space narrowing. Calcified pannus about the dens. Multil evel neural foraminal narrowing most severe on the right at C6-C7. Mild spinal canal stenosis at C6-C7. No prevertebral soft tissue swelling. Visualized intracranial contents are unremarkable. The mastoid air cells are clear. Mild soft tissue swelling in the occipital scalp. Small calcified right thyroid nodule. The lung apices are clear. IMPRESSION: 1. No acute fracture or traumatic malalignment of the cervical spine. 2. 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 3. Spondylotic changes of the cervical spine as described above. 4. Mild soft tissue swelling in the occipital scalp. Please note that all CT scans at this facility use dose modulation, iterative reconstruction, and/or weight-based dosing when appropriate to reduce radiation dose to as low as reasonably achievable. Dictated by Christina Graham MD @ 12/12/2022 1:34:03 PM (Electronic Signature) Patient: DARRELL JENNIFER Facility: [facility] Site . Site : 1935 Study: CT Head W/O - CODE TRAUMA-12/12/2022 12:29:43 PM Ordering Physician: Esther Owens Final Report: INDICATION: Fall, found down TECHNIQUE: Noncontrast axial CT of the head. Coronal and sagittal reformats. Bone and soft tissue algorithms. COMPARISON: CT head 11/29/2022 FINDINGS: Mild occipital scalp edema. No skull fracture or acute intracranial hemorrhage. No midline shift, hydrocephalus, or herniation. Delgado-white matter differentiation is grossly maintained. Generalized cerebral volume loss. Patchy white matter hypoattenuation typical of chronic microangiopathy. Mild mucosal thickening throughout the left maxillary sinus. No air-fluid level or mastoid effusion. Bilateral lens implants IMPRESSION: 1. Mild occipital scalp edema, without evidence of skull fracture or acute intracranial hemorrhage. 2. Generalized cerebral volume loss and mild chronic microangiopathy changes. Please note that all CT scans at this facility use dose modulation, iterative reconstruction, and/or weight-based dosing when appropriate to reduce radiation dose to as low as reasonably achievable. Dictated by Eliana Fountain MD @ 12/12/2022 1:14:37 PM (Electronic Signature) ECG Data Attestation: I personally reviewed and interpreted this ECG as follows: ECG interpretation date: 12/12/22 Interpretation: EKG shows sinus rhythm with occasional PVCs, do not see any acute ST wave change s, although the T-waves in there is some flattening noted laterally Abnormal EKG with no acute ST wave changes Discharge Plan Discharge Clinical Impression: Dementia, Head injury, Parkinson's disease, Fall Patient Disposition: Admitted As Observation Condition: Stable Prescriptions: No Action estradiol 0.01 % (0.1 mg/gram) cream 2 vaginal .3X Per Week methotrexate sodium 2.5 mg tablet 2.5 mg PO .Every 7 Days Rx Instructions: take 6 tablets once a week on Saturday acetaminophen 325 mg tablet 325 mg PO PRN Rx Instructions: NO MORE THAN 4000 MG/DAY omeprazole 20 mg tablet,delayed release (DR/EC) 20 mg PO DAILY multivitamin [Multiple Vitamins] Tablet 1 tab PO QDAY folic acid PO calcium carbonate [Calcium 500] 1 tab PO PRN gabapentin 600 mg tablet 600 mg PO TID folic acid 1 mg tablet 1 mg PO DAILY duloxetine 20 mg capsule,delayed release(DR/EC) 20 mg PO BID carbidopa-levodopa 25-100 mg tablet 2 tab PO TID Follow Up/Referrals: Provider,Not a Local [Primary Care Provider] -
--- NOTE | 2022-12-12 16:41 | P.IMHP_ITS ---
Hospitalist- H&P: HPI History of Present Illness Date Seen: 12/12/22 Chief complaint: fall Narrative: ADMISSION HISTORY AND PHYSICAL - HOSPITALIST Chief Complaint: My mom was found in her home on the floor. Unclear amount of time she was down. She has been falling more. HPI: 86-year-old with a history of Parkinson's and Parkinson's dementia along with chronic neuropathy, rheumatoid arthritis, hypertension presents after falling at home. This is an unwitnessed fall. Time in date of injury is unknown. Her daughter who lives close by found her on the floor this morning. Injuries noted: 11/01/2022 she had a telemedicine follow-up visit with Dr. Olvera ([place]). They discussed her Parkinson's, hypertension, chronic neuropathy. ER COURSE: Imaged, labs, examined. 1 L normal saline fluid bolus. Admission for observation and need for a safe discharge plan needed. CODE STATUS: DNR/DNI EMERGENCY CONTACT PLAN: Primary Contact Kassie Espinoza (janak) Daughter Rel to Pat [phone] Home Phone Secondary Contact Rosio Apontenda Daughter Rel to Pat [phone] Home Phone I've updated the PFSH, medications and allergies in the [facility] tabs. INVESTIGATIONS: LABS/MICRO/ECG/IMAGING CBC was unremarkable. Normal white blood cell count. Hemoglobin of 15.4. Platelet count 305. Electrolytes and renal function are essentially normal. Potassium is just a touch low at 3.5. Her glucose is 114. Total CK 677. Urine showed trace protein, 2+ ketones, 1+ leukocyte esterase, 5-10 white blood cells urine culture pending. No alcohol in her system Quadruple respiratory screen negative Troponin undetectable CT of the spine 1. No acute fracture or traumatic malalignment of the cervical spine. 2. 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 3. Spondylotic changes of the cervical spine as described above. 4. Mild soft tissue swelling in the occipital scalp. Head CT 1. Mild occipital scalp edema, without evidence of skull fracture or acute intracranial hemorrhage. 2. Generalized cerebral volume loss and mild chronic microangiopathy changes. Chest x-ray No acute or significant findings REVIEW OF SYSTEMS: 12-point ROS completed with patient and negative unless otherwise stated in HPI or below. PHYSICAL EXAM: CONSTITUTIONAL: Conversive, good historian. A/O. Knows setting and context. VITAL SIGNS: see record. HEENT: Normocephalic, small confined hematoma to the left occipital region. Tender to palpation. PERRL, EOMI, conjunctivae pink, no scleral icterus. Ears and nose externally normal. Pharynx normal. NECK: No JVD. No carotid bruit, no thyromegaly, no adenopathy. CHEST: Clear to auscultation bilaterally HEART: S1 and S2 normal. No harsh murmurs. Edema minimal. MUSCULOSKELETAL: No gross joint deformity or swelling. NEURO: Cranial nerves intact. Grossly intact. No asymmetric findings. SKIN: Large bruise on her right flank. Small abrasion on her left forearm PSYCHIATRIC: Euthymic. ADMIT TO MEDSURG: FLOOR CARE DVT: SCDs GI: PO intake Time spent: Today I spent 75 minutes seeing the patient, discussing the patient with ER staff, reviewing [facility]se and EPIC notes/diagnostics, discussing the care plan with our care time that includes social work, PT/OT, pharmacy, RT, half-way and documenting my impressions and plan in the medical record. [facility] Medical History (Updated 12/12/22 @ 17:50 by Jaymie Amaro MD) Osteoarthritis of right hip ?M16.11 - Unilateral primary osteoarthritis, right hip (ICD-10) Atrophic vaginitis ?N95.2 - Postmenopausal atrophic vaginitis (ICD-10) Hypertension ?I10 - Essential (primary) hypertension (ICD-10) Peripheral neuropathy ?G62.9 - Polyneuropathy, unspecified (ICD-10) Parkinson's disease ?G20 - Parkinson's disease (ICD-10) Rheumatoid arthritis ?M06.9 - Rheumatoid arthritis, unspecified (ICD-10) Incontinence ?R32 - Unspecified urinary incontinence (ICD-10) GERD (gastroesophageal reflux disease) ?K21.9 - Gastro-esophageal reflux disease without esophagitis (ICD-10) Surgical History (Updated 12/12/22 @ 17:49 by Jaymie Amaro MD) History of laparoscopic cholecystectomy ?Z90.49 - Acquired absence of other specified parts of digestive tract (ICD- 10) 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.659 - Presence of unspecified artificial knee joint (ICD-10) Family History Mother Breast cancer Sister Breast cancer Father H/O cancer of gall bladder Paternal Grandfather Rectal cancer Social History What is your current living situation?: I have a place to live at present, but am concerned about future Problems where you live: no known problems Problems where you live details: none In the past 12 months, utilities in danger of being shut off: no In the past 12 mos, have been you worried that your food would run out before you had money to buy more?: never true In the past 12 mos, the food you bought just didn't last and you didn't have money to buy more?: never true Highest level of school completed/degree received: Associate degree: academic program Smoking Status: Former smoker Do you use any of these nicotine containing products: None Second hand tobacco smoke exposure: Yes How often do you have a drink containing alcohol: never How often do you have six or more drinks on one occasion: Never AUDIT-C Alcohol total score: 0 Non-prescribed substance use: denies use Caffeine: No How often does anyone, including family, friends and others, physically hurt you : never How often does anyone, including family, friends and others, insult or talk down to you: never How often does anyone, including family, friends and others, threaten you with harm: never How often does anyone, including family, friends and others, scream or curse at you: never service: No Meds Home Medications and Allergies Home Medications Medication Instructions Recorded Confirmed Type estradiol 0.01% (0.1 mg/gram) 1 g vaginal .2X/WEEK PRN 11/24/21 12/12/22 History vaginal cream gabapentin 600 mg tablet 600 mg PO TID 11/24/21 12/12/22 History methotrexate sodium 2.5 mg tablet 17.5 mg PO MO 11/24/21 12/12/22 History multivitamin (Multiple Vitamins 1 tab PO DAILY 11/24/21 12/12/22 History tablet) omeprazole 20 mg tablet,delayed 20 mg PO DAILY 11/24/21 12/12/22 History release carbidopa 25 mg-levodopa 100 mg 2 tab PO TID 11/29/22 12/12/22 History tablet duloxetine 20 mg capsule,delayed 20 mg PO BID 11/29/22 12/12/22 History release folic acid 1 mg tablet 1 mg PO DAILY 11/29/22 12/12/22 History acetaminophen 650 mg 650 mg PO BID@12,12/12/22 12/12/22 History tablet,extended release (8 Hour Pain Reliever) calcium carbonate 500 mg-vitamin 1 tab PO DAILY 12/12/22 12/12/22 History D3 10 mcg (400 unit) tablet (Calcium 500 + D) cephalexin 500 mg capsule 2,000 mg PO DIRECTED PRN 12/12/22 12/12/22 History clobetasol 0.05 % topical ointment 1 applic topical DAILY PRN 12/12/22 12/12/22 History diclofenac sodium 1 % topical gel 4 g topical QID PRN 12/12/22 12/12/22 History vitamins A,C,J-mvop-bbftep 2,148 2 tab PO DAILY 12/12/22 12/12/22 History mcg-113 mg-45 mg-17.4 mg tablet (PreserVision AREDS) Allergies Allergy/AdvReac Type Severity Reaction Status Date / Time No Known Allergies Allergy Unknown Verified 11/29/22 14:01 Exam Const: Vital Signs, click to edit/add: Vital Signs - 24 hr 12/12/22 12:34 12/12/22 12:34 12/12/22 12:35 Temperature 97.6 F Pulse Rate 80 79 Pulse Rate [Pulse Oximeter] 76 Respiratory Rate 13 Blood Pressure 160/95 H Blood Pressure [Ri ght Upper Arm] 169/94 H Pulse Oximetry 94 94 95 [facility] 12/12/22 12:37 12/12/22 12:44 12/12/22 12:45 Temperature Pulse Rate 75 78 79 Pulse Rate [Pulse Oximeter] Respiratory Rate Blood Pressure 169/94 H 151/101 H Blood Pressure [Ri ght Upper Arm] Pulse Oximetry 95 95 96 Oxygen Delivery Fl thod 12/12/22 12:47 12/12/22 12:52 12/12/22 12:57 Temperature Pulse Rate 80 79 Pulse Rate [Pulse Oximeter] Respiratory Rate Blood Pressure 180/143 H 193/87 H 195/157 H Blood Pressure [Ri ght Upper Arm] Pulse Oximetry 93 93 [facility] 12/12/22 13:00 12/12/22 13:02 12/12/22 13:09 Temperature Pulse Rate 83 81 81 Pulse Rate [Pulse Oximeter] Respiratory Rate Blood Pressure 187/95 H 73/20 L Blood Pressure [Ri ght Upper Arm] Pulse Oximetry 93 93 94 Oxygen Delivery Me thod 12/12/22 13:11 12/12/22 13:15 12/12/22 13:26 Temperature Pulse Rate 78 83 94 Pulse Rate [Pulse Oximeter] Respiratory Rate Blood Pressure 182/88 H 149/121 H Blood Pressure [Ri ght Upper Arm] Pulse Oximetry 93 94 96 Oxygen Delivery Me thod 12/12/22 13:30 12/12/22 13:33 12/12/22 13:58 Temperature Pulse Rate 79 79 80 Pulse Rate [Pulse Oximeter] Respiratory Rate Blood Pressure 163/81 H Blood Pressure [Ri ght Upper Arm] Pulse Oximetry 95 94 94 Oxygen Delivery Me thod 12/12/22 14:00 12/12/22 14:03 12/12/22 14:04 Temperature Pulse Rate 78 80 82 Pulse Rate [Pulse Oximeter] Respiratory Rate Blood Pressure 172/77 H Blood Pressure [Ri ght Upper Arm] Pulse Oximetry 96 95 97 Oxygen Delivery Me thod 12/12/22 14:12 12/12/22 14:15 12/12/22 14:22 Temperature Pulse Rate 79 78 76 Pulse Rate [Pulse Oximeter] Respiratory Rate Blood Pressure 177/68 H 169/98 H Blood Pressure [Ri ght Upper Arm] Pulse Oximetry 95 93 95 Oxygen Delivery Me thod 12/12/22 14:30 12/12/22 14:32 12/12/22 14:42 Temperature Pulse Rate 79 78 81 Pulse Rate [Pulse Oximeter] Respiratory Rate Blood Pressure 179/80 H 188/98 H Blood Pressure [Ri ght Upper Arm] Pulse Oximetry 93 95 94 Oxygen Delivery Me thod 12/12/22 14:45 12/12/22 14:52 12/12/22 15:00 Temperature Pulse Rate 80 80 89 Pulse Rate [Pulse Oximeter] Respiratory Rate Blood Pressure 173/85 H Blood Pressure [Ri ght Upper Arm] Pulse Oximetry 94 93 93 Oxygen Delivery Me thod 12/12/22 15:02 12/12/22 15:03 12/12/22 15:12 Temperature Pulse Rate 82 83 80 Pulse Rate [Pulse Oximeter] Respiratory Rate Blood Pressure 184/94 H 181/81 H Blood Pressure [Ri ght Upper Arm] Pulse Oximetry 93 92 94 Oxygen Delivery Me thod 12/12/22 15:15 12/12/22 15:22 12/12/22 15:23 Temperature Pulse Rate 82 85 86 Pulse Rate [Pulse Oximeter] Respiratory Rate Blood Pressure 181/76 H Blood Pressure [Ri ght Upper Arm] Pulse Oximetry 92 92 91 Oxygen Delivery Me thod 12/12/22 15:34 12/12/22 15:38 12/12/22 15:42 Temperature Pulse Rate 105 H 88 Pulse Rate [Pulse Oximeter] Respiratory Rate Blood Pressure 154/120 H 198/114 H Blood Pressure [Ri ght Upper Arm] Pulse Oximetry 93 93 Oxygen Delivery Me thod 12/12/22 15:45 12/12/22 15:51 12/12/22 16:00 Temperature Pulse Rate 85 82 82 Pulse Rate [Pulse Oximeter] Respiratory Rate Blood Pressure 185/83 H Blood Pressure [Ri ght Upper Arm] Pulse Oximetry 93 92 94 Oxygen Delivery Fl thod 12/12/22 16:02 12/12/22 16:12 12/12/22 16:15 Temperature Pulse Rate 82 81 81 Pulse Rate [Pulse Oximeter] Respiratory Rate Blood Pressure 186/81 H 188/80 H Blood Pressure [Ri ght Upper Arm] Pulse Oximetry 93 91 91 Oxygen Delivery Me od Hospitalist - H&P: Result Labs Labs: Short CBC 12/12/22 Range/Units 13:06 WBC 9.96 (4.50-11.00) K/uL Hgb 15.4 (12.0-16.0) gm/dL Hct 48.1 (33.0-51.0) % Plt Count 305 (140-440) K/uL BMP 12/12/22 13:06 Sodium 139 Potassium 3.5 L Chloride 103 Carbon Dioxide 26 BUN 12 Creatinine 0.5 Glucose 114 Calcium 9.3 Cardiac Enzymes 12/12/22 Range/Units 13:06 Total Creatine Kinase 677 H (41-117) U/L Urine 12/12/22 Range/Units 13:28 Urine Color Yellow (Yellow) Urine Appearance Clear (Clear) Urine pH 7.5 (5.0-8.5) Ur Specific [place] 1.020 (1.000-1.030) Urine Protein Trace A (Negative) Urine Glucose (UA) Negative (Negative) Assessment and Plan Assessment and plan (1) Fall: Problem comment: DOI - two in November 2022; hospitalized after the 12/11 fall. mild increase in CK. Status: Acute (2) UTI (urinary tract infection): Problem comment: -1 g Rocephin Q 24 as we await for culture and sensitivities Status: Acute (3) Hematoma of occipital region of scalp: Problem comment: Confined, small. Follow. Status: Acute (4) Elevated creatine kinase level: Problem comment: Greater than 600 at admission. Received normal saline. Status: Acute (5) Dementia: Problem comment: -related to Parkinson's. Daughter is extremely helpful in med management, house cares, meals. Status: Acute (6) Hypertension: Problem comment: family says she does not have HTN, no longer on BP med Status: Acute (7) Peripheral neuropathy: Problem comment: -gabapentin 600mg TID -cymbalta 20mg BID Status: Acute (8) Parkinson's disease: Problem comment: -Sinemet 25/102 tabs t.i.d. -evidence of rigidity, dementia Status: Acute (9) Rheumatoid arthritis: Problem comment: Methotrexate weekly. Followed by Rheumatology. Status: Acute
[2022-12-12] MEDS: 5 % DEX/0.9 SOD CHL+KCL 20 mEq 1,000 ML 125 ML IV (18:55)
[2022-12-12] MEDS: PANTOPRAZOLE SODIUM 40 MG INJ IVP (18:55)
[2022-12-12] MEDS: cefTRIAXone 1 GM in 0.9 % SODIUM CHLORIDE Mini-bag 100 ML IVPB (18:56)
[2022-12-12 19:27] LABS: Phosphorus* 3.2 mg/dL (2.5-4.5)
[2022-12-12 19:28] LABS: Magnesium* 1.9 mg/dL (1.5-2.6)
[2022-12-12] MEDS: ACETAMINOPHEN INJ 1,000 MG/100 ML VIAL 400 MG IVPB (20:10)
[2022-12-12] MEDS: DULOXETINE HCL 20 MG CAPSULE DR PO (21:04)
[2022-12-12] MEDS: CARBIDOPA-LEVODOPA 25-100 TABLET 2 TAB PO (21:04)
[2022-12-12] MEDS: GABAPENTIN 600 MG TABLET PO (21:04)
--- NOTE | 2022-12-12 22:35 | PC.NURSE ---
End of Shift: Patient pleasant and cooperative, only oriented to name and very confused. Patient vitally stable, lungs clear, BS WNL, IV running [id number] at 125. Patient 1/2 assist, walker, gb. Patient reported some back pain, iv tylenol given. Patient tolerating regular diet and urinating, with some incontinence in brief. Tele=NSR. Abrasion to left wrist with band-aid and bruising on back.
[2022-12-13] VITALS (8 sets, daily range): BP systolic 129–149; BP diastolic 55–79; PULSE 79–94; RESP 16–18; TEMP 36.4–36.9; O2SAT 94–96; BMI 23.7
[2022-12-13] MEDS: 5 % DEX/0.9 SOD CHL+KCL 20 mEq 1,000 ML 125 ML IV ×2 (05:25→20:10)
--- NOTE | 2022-12-13 06:26 | PC.NURSE ---
Patient slept through the night, did wake to verbal stimuli but did quickly fall back to sleep. Denied any pain this shift. Bowel sounds active x 4 quadrants. Lung sounds clear, denies any shortness of breath or cough.
[2022-12-13] MEDS: OMEPRAZOLE 20 MG CAPSULE DR PO (06:46)
[2022-12-13 06:50] LABS: Basophils Absolute Auto 0.04 K/uL (0.00-0.30); Basophils Percent Auto 0.5 % (0.0-3.0); Eosinophils Absolute Auto 0.22 K/uL (0.00-0.50); Eosinophils Percent Auto 2.6 % (0.0-7.0); Hematocrit 41.2 % (33.0-51.0); Hemoglobin* 12.7 gm/dL (12.0-16.0); Lymphocytes Absolute Auto 1.82 K/uL (0.90-2.90); Lymphocytes Percent Auto 21.9 % (20-44); Mean Corpuscular HGB Conc 31 gm/dL (32-36); Mean Corpuscular Hemoglobin 31 pg (26-34); Mean Corpuscular Volume 101 fL (80-100); Monocytes Percent Auto 15.2 % (0.0-11.0); Neutrophils Absolute Auto 4.97 K/uL (1.7-7.0); Neutrophils Percent Auto 59.8 % (42.0-72.0); Platelet Count* 274 K/uL (140-440); RDW Coefficient of Variation % 13.1 % (11.5-15.5); White Blood Count* 8.31 K/uL (4.50-11.00)
[2022-12-13 07:05] LABS: INR 1.09 (0.91-1.10); Prothrombin Time 14.7 Seconds; Slide Review Reflex No
[2022-12-13 07:07] LABS: HCO3 VBG 30 mmol/L (21-28); PCO2 VBG 58 mmHG (40-50); pH VBG 7.324 (7.32-7.43)
[2022-12-13 07:28] LABS: Albumin* 3.6 g/dL (3.3-5.0); Chloride* 107 mmol/L (96-114); Sodium* 140 mmol/L (135-149)
[2022-12-13 07:29] LABS: Potassium* 3.9 mmol/L (3.6-5.1)
[2022-12-13 07:31] LABS: Alkaline Phosphatase* 43 U/L (40-150); Anion Gap 5 mEq/L (7-15); Aspartate Amino Transferase* 67 U/L (12-35); Bilirubin Total* 1.5 mg/dL (0.1-1.5); Blood Urea Nitrogen* 11 mg/dL (7-30); Carbon Dioxide* 28 mmol/L (20-32); Creatine Kinase* 596 U/L (41-117); Creatinine* 0.6 mg/dL (0.5-1.5); Est. Creatinine Clearance* 36.34; Estimated Glomerular Filt Rate 87 ml/min; Glucose* 104 mg/dL (60-115); Total Protein* 6.3 g/dL (6.0-8.3)
[2022-12-13 07:32] LABS: Alanine Aminotransferase* 11 U/L (4-35); Calcium* 8.7 mg/dL (8.4-10.6)
[2022-12-13 07:42] LABS: Troponin I* 0.02 ng/mL (0.01-0.04)
[2022-12-13] MEDS: GABAPENTIN 600 MG TABLET PO ×3 (09:20→21:25)
[2022-12-13] MEDS: FOLIC ACID 1 MG TABLET PO (09:20)
[2022-12-13] MEDS: DULOXETINE HCL 20 MG CAPSULE DR PO ×2 (09:20→21:25)
[2022-12-13] MEDS: CARBIDOPA-LEVODOPA 25-100 TABLET 2 TAB PO ×3 (09:21→21:25)
--- NOTE | 2022-12-13 11:41 | PM.IMPN1 ---
Progress Note: A&P Assessment and plan (1) Fall: Problem details: DOI - two in November 2022; hospitalized after the 12/11 fall. mild increase in CK. Status: Acute (2) Elevated creatine kinase level: Problem details: Greater than 600 at admission. Received normal saline. Status: Acute (3) UTI (urinary tract infection): Problem details: -1 g Rocephin Q 24 as we await for culture and sensitivities Status: Acute (4) Hematoma of occipital region of scalp: Problem details: Confined, small. Follow. Status: Acute (5) Rheumatoid arthritis: Problem details: Methotrexate weekly. Followed by Rheumatology. Status: Acute (6) Dementia: Problem details: -related to Parkinson's. Daughter is extremely helpful in med management, house cares, meals. Status: Acute (7) Parkinson's disease: Problem details: -Sinemet 25/102 tabs t.i.d. -evidence of rigidity, dementia Status: Acute (8) Peripheral neuropathy: Problem details: -gabapentin 600mg TID -cymbalta 20mg BID Status: Acute (9) Hypertension: Problem details: family says she does not have HTN, no longer on BP med Status: Acute Plan 1. Reviewed impression with patient 2. Continue with current treatment plan for now 3. Work with physical therapy and occupational therapy in an effort to try to come up with a safe discharge disposition plan 4. Continue to monitor labs Time Spent With Patient Total time spent: 40 minutes Subjective Time Seen by Provider: 09:30 Date Seen: 12/13/22 Interval history: Hospital day 2. History of present illness: 86-year-old with a history of Parkinson's and Parkinson's dementia along with chronic neuropathy, rheumatoid arthritis, hypertension presents after falling at home. This is an unwitnessed fall. Time in date of injury is unknown. Her daughter who lives close by found her on the floor this morning. Injuries noted: 11/01/2022 she had a telemedicine follow-up visit with Dr. Olvera ([facility]). They discussed her Parkinson's, hypertension, chronic neuropathy. ER COURSE: Imaged, labs, examined. 1 L normal saline fluid bolus. Admission for observation and need for a safe discharge plan needed. Indicates she feels better at this time. Unable to have a substantive conversation. In trying to explain to me how she ended up here in the hospital she tells me, ?I was doing what I should not do. I was not doing what I should do. I know better.? Denies discomfort, pain. Denies chest heaviness, pressure, tightness, pain. Denies syncope or near-syncope. Denies nausea vomiting. Denies cough, dyspnea at rest, dyspnea with exertion, orthopnea, paroxysmal nocturnal dyspnea. Denies headache. Eating and drinking. Tolerating increased activities. Exam Narrative: Exam Narrative: I assess the patient in her room and in the hallway. Alert and oriented to self, place, not so much to time or situation. Able to speak but having difficulties expressing herself meaningfully. Lungs clear to auscultation. Heart tones with regular rhythm. Abdomen benign. Ambulating in hallway with roller walker. Const: Vital Signs, click to edit/add: Vital Signs - 24 hr 12/12/22 12:34 12/12/22 12:34 12/12/22 12:35 Temperature 97.6 F Pulse Rate 80 79 Pulse Rate [Left A pical] Pulse Rate [Pulse Oximeter] 76 Respiratory Rate 13 Blood Pressure 160/95 H Blood Pressure [Ri ght Arm] Blood Pressure [Ri ght Upper Arm] 169/94 H Pulse Oximetry 94 94 95 Oxygen Delivery Me thod Room Air 12/12/22 12:37 12/12/22 12:44 12/12/22 12:45 Temperature Pulse Rate 75 78 79 Pulse Rate [Left A pical] Pulse Rate [Pulse Oximeter] Respiratory Rate Blood Pressure 169/94 H 151/101 H Blood Pressure [Ri ght Arm] Blood Pressure [Ri ght Upper Arm] Pulse Oximetry 95 95 96 Oxygen Delivery Me thod 12/12/22 12:47 12/12/22 12:52 12/12/22 12:57 Temperature Pulse Rate 80 79 Pulse Rate [Left A pical] Pulse Rate [Pulse Oximeter] Respiratory Rate Blood Pressure 180/143 H 193/87 H 195/157 H Blood Pressure [Ri ght Arm] Blood Pressure [Ri ght Upper Arm] Pulse Oximetry 93 93 Oxygen Delivery Me thod 12/12/22 13:00 12/12/22 13:02 12/12/22 13:09 Temperature Pulse Rate 83 81 81 Pulse Rate [Left A pical] Pulse Rate [Pulse Oximeter] Respiratory Rate Blood Pressure 187/95 H 73/20 L Blood Pressure [Ri ght Arm] Blood Pressure [Ri ght Upper Arm] Pulse Oximetry 93 93 94 Oxygen Delivery Me thod 12/12/22 13:11 12/12/22 13:15 12/12/22 13:26 Temperature Pulse Rate 78 83 94 Pulse Rate [Left A pical] Pulse Rate [Pulse Oximeter] Respiratory Rate Blood Pressure 182/88 H 149/121 H Blood Pressure [Ri ght Arm] Blood Pressure [Ri ght Upper Arm] Pulse Oximetry 93 94 96 Oxygen Delivery Me thod 12/12/22 13:30 12/12/22 13:33 12/12/22 13:58 Temperature Pulse Rate 79 79 80 Pulse Rate [Left A pical] Pulse Rate [Pulse Oximeter] Respiratory Rate Blood Pressure 163/81 H Blood Pressure [Ri ght Arm] Blood Pressure [Ri ght Upper Arm] Pulse Oximetry 95 94 94 Oxygen Delivery Nj thod 12/12/22 14:00 12/12/22 14:03 12/12/22 14:04 Temperature Pulse Rate 78 80 82 Pulse Rate [Left A pical] Pulse Rate [Pulse Oximeter] Respiratory Rate Blood Pressure 172/77 H Blood Pressure [Ri ght Arm] Blood Pressure [Ri ght Upper Arm] Pulse Oximetry 96 95 97 Oxygen Delivery Nj thod 12/12/22 14:12 12/12/22 14:15 12/12/22 14:22 Temperature Pulse Rate 79 78 76 Pulse Rate [Left A pical] Pulse Rate [Pulse Oximeter] Respiratory Rate Blood Pressure 177/68 H 169/98 H Blood Pressure [Ri ght Arm] Blood Pressure [Ri ght Upper Arm] Pulse Oximetry 95 93 95 Oxygen Delivery Nj thod 12/12/22 14:30 12/12/22 14:32 12/12/22 14:42 Temperature Pulse Rate 79 78 81 Pulse Rate [Left A pical] Pulse Rate [Pulse Oximeter] Respiratory Rate Blood Pressure 179/80 H 188/98 H Blood Pressure [Ri ght Arm] Blood Pressure [Ri ght Upper Arm] Pulse Oximetry 93 95 94 Oxygen Delivery Me thod 12/12/22 14:45 12/12/22 14:52 12/12/22 15:00 Temperature Pulse Rate 80 80 89 Pulse Rate [Left A pical] Pulse Rate [Pulse Oximeter] Respiratory Rate Blood Pressure 173/85 H Blood Pressure [Ri ght Arm] Blood Pressure [Ri ght Upper Arm] Pulse Oximetry 94 93 93 Oxygen Delivery Me thod 12/12/22 15:02 12/12/22 15:03 12/12/22 15:12 Temperature Pulse Rate 82 83 80 Pulse Rate [Left A pical] Pulse Rate [Pulse Oximeter] Respiratory Rate Blood Pressure 184/94 H 181/81 H Blood Pressure [Ri ght Arm] Blood Pressure [Ri ght Upper Arm] Pulse Oximetry 93 92 94 Oxygen Delivery Me thod 12/12/22 15:15 12/12/22 15:22 12/12/22 15:23 Temperature Pulse Rate 82 85 86 Pulse Rate [Left A pical] Pulse Rate [Pulse Oximeter] Respiratory Rate Blood Pressure 181/76 H Blood Pressure [Ri ght Arm] Blood Pressure [Ri ght Upper Arm] Pulse Oximetry 92 92 91 Oxygen Delivery Nj thod 12/12/22 15:34 12/12/22 15:38 12/12/22 15:42 Temperature Pulse Rate 105 H 88 Pulse Rate [Left A pical] Pulse Rate [Pulse Oximeter] Respiratory Rate Blood Pressure 154/120 H 198/114 H Blood Pressure [Ri ght Arm] Blood Pressure [Ri ght Upper Arm] Pulse Oximetry 93 93 Oxygen Delivery Nj thod 12/12/22 15:45 12/12/22 15:51 12/12/22 16:00 Temperature Pulse Rate 85 82 82 Pulse Rate [Left A pical] Pulse Rate [Pulse Oximeter] Respiratory Rate Blood Pressure 185/83 H Blood Pressure [Ri ght Arm] Blood Pressure [Ri ght Upper Arm] Pulse Oximetry 93 92 94 Oxygen Delivery Nj thod 12/12/22 16:02 12/12/22 16:12 12/12/22 16:15 Temperature Pulse Rate 82 81 81 Pulse Rate [Left A pical] Pulse Rate [Pulse Oximeter] Respiratory Rate Blood Pressure 186/81 H 188/80 H Blood Pressure [Ri ght Arm] Blood Pressure [Ri ght Upper Arm] Pulse Oximetry 93 91 91 Oxygen Delivery Me thod 12/12/22 16:43 12/12/22 18:28 12/12/22 18:32 Temperature 98.6 F Pulse Rate Pulse Rate [Left A pical] Pulse Rate [Pulse Oximeter] 87 Respiratory Rate 24 20 Blood Pressure Blood Pressure [Ri ght Arm] Blood Pressure [Ri ght Upper Arm] Pulse Oximetry 93 96 96 Oxygen Delivery Me thod Room Air Room Air Room Air 12/12/22 19:17 12/12/22 20:10 12/12/22 22:04 Temperature 99.4 F 99.4 F Pulse Rate 95 Pulse Rate [Left A pical] Pulse Rate [Pulse Oximeter] 103 H Respiratory Rate 24 Blood Pressure Blood Pressure [Ri ght Arm] 150/51 H Blood Pressure [Ri ght Upper Arm] Pulse Oximetry 96 Oxygen Delivery Nj thod Room Air 12/12/22 23:00 12/12/22 23:00 12/12/22 23:00 Temperature 98.6 F Pulse Rate 90 Pulse Rate [Left A pical] Pulse Rate [Pulse Oximeter] 90 Respiratory Rate 20 Blood Pressure Blood Pressure [Ri ght Arm] 123/67 Blood Pressure [Ri ght Upper Arm] Pulse Oximetry 94 94 [facility] 12/13/22 03:00 12/13/22 07:00 12/13/22 07:00 Temperature 97.6 F 98.4 F Pulse Rate Pulse Rate [Left A pical] 94 Pulse Rate [Pulse Oximeter] 82 94 Respiratory Rate 18 16 Blood Pressure Blood Pressure [Ri ght Arm] 129/56 L 140/78 H Blood Pressure [Ri ght Upper Arm] Pulse Oximetry 96 95 95 [facility] Room Air 12/13/22 10:29 Temperature Pulse Rate 83 Pulse Rate [Left A pical] Pulse Rate [Pulse Oximeter] Respiratory Rate Blood Pressure Blood Pressure [Ri ght Arm] Blood Pressure [Ri ght Upper Arm] Pulse Oximetry Oxygen Delivery Me od Documenting provider has reviewed patient's vital signs: yes Labs Labs: Laboratory Results - last 24 hr 12/12/22 12/12/22 12/12/22 13:06 13:09 13:28 WBC 9.96 RBC 4.97 Hgb 15.4 Hct 48.1 MCV 97 MCH 31 MCHC 32 RDW Coeff of Justen 12.7 Plt Count 305 Neut % (Auto) 83.7 H Lymph % (Auto) 7.6 L [place] % (Auto) 8.2 Eos % (Auto) 0.1 Baso % (Auto) 0.3 Neut # (Auto) 8.30 H Lymph # (Auto) 0.80 L [place] # (Auto) 0.80 Eos # (Auto) 0.01 Baso # (Auto) 0.03 Abs Immat Gran (auto) 0.01 Imm/Tot Granulo (auto) 0.1 INR VBG pH VBG pCO2 VBG pO2 VBG HCO3 Sodium 139 Potassium 3.5 L Chloride 103 Carbon Dioxide 26 Anion Gap 10 BUN 12 Creatinine 0.5 Estimated Creat Clear 39.27 Estimated GFR 91 Glucose 114 Calcium 9.3 Phosphorus 3.2 Magnesium 1.9 Total Bilirubin AST ALT Alkaline Phosphatase Total Creatine Kinase 677 H Troponin I Total Protein Albumin TSH 3.170 Urine Color Yellow Urine Appearance Clear Urine pH 7.5 Ur Specific Reynolds 1.020 Urine Protein Trace A Urine Glucose (UA) Negative Urine Ketones 2+ A Urine Blood Negative Urine Nitrite Negative Urine Bilirubin Negative Urine Urobilinogen 0.2 Ur Leukocyte Esterase 1+ A Urine RBC 0-2 Urine WBC 5-10 A Ur Squamous Epith Cells Few Urine Bacteria Few A Ethyl Alcohol < 0.01 L SARS-CoV-2 (PCR) Influenza Type A (PCR) Influenza Type B (PCR) RSV (PCR) Lab Acknowledgement POC Troponin I 0.00 L 12/12/22 12/12/22 12/12/22 14:18 14:43 19:10 WBC RBC Hgb Hct MCV MCH MCHC RDW Coeff of Justen Plt Count Neut % (Auto) Lymph % (Auto) [place] % (Auto) Eos % (Auto) Baso % (Auto) Neut # (Auto) Lymph # (Auto) [place] # (Auto) Eos # (Auto) Baso # (Auto) Abs Immat Gran (auto) Imm/Tot Granulo (auto) INR VBG pH VBG pCO2 VBG pO2 VBG HCO3 Sodium Potassium Chloride Carbon Dioxide Anion Gap BUN Creatinine Estimated Creat Clear Estimated GFR Glucose Calcium Phosphorus Magnesium Total Bilirubin AST ALT Alkaline Phosphatase Total Creatine Kinase Troponin I Total Protein Albumin TSH Urine Color Urine Appearance Urine pH Ur Specific Reynolds Urine Protein Urine Glucose (UA) Urine Ketones Urine Blood Urine Nitrite Urine Bilirubin Urine Urobilinogen Ur Leukocyte Esterase Urine RBC Urine WBC Ur Squamous Epith Cells Urine Bacteria Ethyl Alcohol SARS-CoV-2 (PCR) Negative SARS-CoV-2 Influenza Type A (PCR) Negative PCR FLU A Influenza Type B (PCR) Negative PCR FLU B RSV (PCR) Negative PCR RSV Lab Acknowledgement Test Added Test Added POC Troponin I 12/13/22 06:09 WBC 8.31 RBC 4.10 Hgb 12.7 Hct 41.2 MCV 101 H MCH 31 MCHC 31 L RDW Coeff of Justen 13.1 Plt Count 274 Neut % (Auto) 59.8 Lymph % (Auto) 21.9 [place] % (Auto) 15.2 H Eos % (Auto) 2.6 Baso % (Auto) 0.5 Neut # (Auto) 4.97 Lymph # (Auto) 1.82 [place] # (Auto) 1.30 H Eos # (Auto) 0.22 Baso # (Auto) 0.04 Abs Immat Gran (auto) 0.00 Imm/Tot Granulo (auto) 0.0 INR 1.09 VBG pH 7.324 VBG pCO2 58 H VBG pO2 32.0 VBG HCO3 30 H Sodium 140 Potassium 3.9 Chloride 107 Carbon Dioxide 28 Anion Gap 5 L BUN 11 Creatinine 0.6 Estimated Creat Clear 36.34 Estimated GFR 87 Glucose 104 Calcium 8.7 Phosphorus Magnesium Total Bilirubin 1.5 AST 67 H ALT 11 Alkaline Phosphatase 43 Total Creatine Kinase 596 H Troponin I 0.02 Total Protein 6.3 Albumin 3.6 TSH Urine Color Urine Appearance Urine pH Ur Specific Reynolds Urine Protein Urine Glucose (UA) Urine Ketones Urine Blood Urine Nitrite Urine Bilirubin Urine Urobilinogen Ur Leukocyte Esterase Urine RBC Urine WBC Ur Squamous Epith Cells Urine Bacteria Ethyl Alcohol SARS-CoV-2 (PCR) Influenza Type A (PCR) Influenza Type B (PCR) RSV (PCR) Lab Acknowledgement POC Troponin I
--- NOTE | 2022-12-13 12:06 | PC.SOCIAL ---
Discharge Planning: Met with patient, Gina and daughter, Kassie [phone]. Discussion on TCU stay and bed bug exterminator plan. Family have been looking a t Assisted living facilities. Kassie would prefer placement at the following: [facility]- Spoke to Lalita Marshall [phone] packet faxed as requested [facility] - Spoke to [facility] [phone] packet faxed as requested Social work to follow up as needed.
--- NOTE | 2022-12-13 12:32 | PC.NURSE ---
Pt's dtrs present and supportive at bedside. Pt is CHITINA with bilateral hearing aides and prescription glasses. Eval by PT, OT and Dr. Deras on day shift. Plan possible SNF or HH services. IVF site wnl parameters. Continue POC. Takes pills one at a time.
[2022-12-13] MEDS: SODIUM CHLORIDE 0.9 % (FLUSH) 10 ML SYRINGE 5 ML IVF (13:58)
--- NOTE | 2022-12-13 15:03 | PC.SOCIAL ---
Addendum entered by THERON Roach 12/13/22 16:47: [facility] has arranged for the facility van to transport pt at 11:00 at the request of the family. If pt is not ready for discharge tomorrow and is not ready for discharge to the [facility] until the holiday weekend, nurse cell number at [facility] [phone] can be contacted by hospital nurse to coordinate discharge plans. Original Note: Discharge plans: Received call from Lalita Marshall at the [facility] stating pt can be accepted for rehab tomorrow at 11:00. Van can be sent if family does not want to transport. Met with dtrs, Kassie ([phone]) and Haleigh ([phone]). They are both pleased with the plan for discharge to the [facility]. They are planning to visit for a tour today and will contact Lalita regarding that. Family to decide by tomorrow morning if they are going to transport pt or request the [facility] facility van. Family is aware stay will be private pay and agree with this plan.emergency worker to follow up as needed.
--- NOTE | 2022-12-13 15:27 | PC.NURSE ---
Nursing report called to [facility]. Schwab from in to speak with patient's dtrs. IV noted to be infiltrated, left AC #18 discontinued. New IV site #22 to left wrist. Report to Rosendo palacio RN.
[2022-12-13] MEDS: cefTRIAXone 1 GM in 0.9 % SODIUM CHLORIDE Mini-bag 100 ML IVPB (17:46)
--- NOTE | 2022-12-13 22:38 | PC.NURSE ---
end of shift. pt is alert to self, she is not sure about . he is eating, drinking and voiding. IV is patent. she takes pills one at a time. she was placed on fall risk and bed and chair alarms are on. tele shows Sinus Arrhythmia.
[2022-12-14 03:35] VITALS: BP 171/80; PULSE 81; RESP 18; TEMP 36.8; O2SAT 94
[2022-12-14] MEDS: 5 % DEX/0.9 SOD CHL+KCL 20 mEq 1,000 ML 125 ML IV (04:01)
[2022-12-14] MEDS: ACETAMINOPHEN INJ 1,000 MG/100 ML VIAL 400 MG IVPB (06:41)
[2022-12-14] MEDS: OMEPRAZOLE 20 MG CAPSULE DR PO (06:43)
[2022-12-14 06:52] LABS: Hematocrit 41.7 % (33.0-51.0); Mean Corpuscular HGB Conc 31 gm/dL (32-36); Mean Corpuscular Hemoglobin 31 pg (26-34); Mean Corpuscular Volume 101 fL (80-100); Platelet Count* 288 K/uL (140-440); Red Blood Count 4.14 m/uL (4.00-5.20)
[2022-12-14 06:56] LABS: Slide Review Reflex No
[2022-12-14 07:00] VITALS: BP 164/84; PULSE 77; RESP 18; TEMP 36.7; O2SAT 95
[2022-12-14 07:09] LABS: Albumin* 3.9 g/dL (3.3-5.0); Chloride* 106 mmol/L (96-114); Potassium* 3.7 mmol/L (3.6-5.1); Sodium* 142 mmol/L (135-149)
[2022-12-14 07:11] LABS: Aspartate Amino Transferase* 50 U/L (12-35); Creatinine* 0.5 mg/dL (0.5-1.5); Est. Creatinine Clearance* 36.34; Estimated Glomerular Filt Rate 91 ml/min
[2022-12-14 07:12] LABS: Anion Gap 9 mEq/L (7-15); Blood Urea Nitrogen* 8 mg/dL (7-30); Calcium* 8.7 mg/dL (8.4-10.6); Carbon Dioxide* 27 mmol/L (20-32); Creatine Kinase* 370 U/L (41-117); Glucose* 123 mg/dL (60-115); Phosphorus* 2.5 mg/dL (2.5-4.5)
--- NOTE | 2022-12-14 08:06 | PC.NURSE ---
Pt alert to self only. Pt has difficulties expressing herself often pausing mid sentence to reword. Pt denied pain throughout night but this morning pt reported head and neck aches 7/10, pain managed with PRN Tylenol. Pt is up with A1/2 walker and gait belt to commode. Pt was up to the bathroom x2 and voided 900 ml each time. Pt slept intermittently night.
--- NOTE | 2022-12-14 09:38 | PC.SOCIAL ---
Addendum entered by GISSELL Portillo 12/14/22 09:45: Pt is cleared for discharge today. Phone call to Lalita Marshall at [facility]. Lalita will send the facility van to [facility] at 10:30 am. Phone call to pt's MAGGY (Kassie) and provided her with an update. Social work will follow up as needed. Original Note: Completed preadmission screening for pt to admit to [facility] on 12-14-2022. Confirmation #[id number].
[2022-12-14] MEDS: CARBIDOPA-LEVODOPA 25-100 TABLET 2 TAB PO (09:45)
[2022-12-14] MEDS: GABAPENTIN 600 MG TABLET PO (09:46)
[2022-12-14] MEDS: DULOXETINE HCL 20 MG CAPSULE DR PO (09:46)
[2022-12-14] MEDS: FOLIC ACID 1 MG TABLET PO (09:46)
[2022-12-14] MEDS: SENNOSIDES/DOCUSATE TABLET 1 TAB PO (10:38)
--- NOTE | 2022-12-14 12:03 | PC.NURSE ---
Nursing Care Hours: 2022-8160 Pt this shift calm and cooperative with cares. Anxious when waking up d/t pt realizing she does not recognize where she is. Pt is oriented to self and remembers falling and that it hurt. States difficulty in moving neck. No apparent trauma noted, hospitalist aware. SB assist with walker and gait belt. Eating independently. C/o feeling constipated, senna given PRN. IV removed for discharge. Tele shows NSR with occasional PAC.
--- NOTE | 2022-12-14 15:28 | P.DS_ITS ---
DS: Providers Provider Time Seen by Provider: 09:00 Date Seen: 12/14/22 Date of admission: 12/12/22 16:21 Primary care physician: Not a Local Provider Admitting Clinician: Jaymie Amaro MD Consults: 12/12/22 17:41 Consult to Nutrition [CONS] Routine Comment: Reason for consult:: Nutritional Consult Consult to Occupational Therapy [CONS] Routine Comment: Reason(s) for OT Consult:: Evaluate and Treat Any Restrictions?:: No Restrictions Consult to Physical Therapy [CONS] Routine Comment: Reason(s) for PT Consult:: Evaluate and Treat Any Restrictions?:: No Restrictions Consult to Compressor Station Engineer [CONS] Routine Comment: Reason for Consult:: Social Service Consult Attending Physician on discharge: Hair Deras MD Date of Discharge: 12/14/22 DS: Diagnosis Discharge Diagnosis (1) Fall: Status: Acute Problem details: DOI - two in November 2022; hospitalized after the 12/11 fall. mild increase in CK. (2) Parkinson's disease: Status: Acute Problem details: -Sinemet 25/102 tabs t.i.d. -evidence of rigidity, dementia (3) Dementia: Status: Acute Problem details: -related to Parkinson's. Daughter is extremely helpful in med management, house cares, meals. (4) Peripheral neuropathy: Status: Acute Problem details: -gabapentin 600mg TID -cymbalta 20mg BID (5) Hematoma of occipital region of scalp: Status: Acute Problem details: Confined, small. Follow. (6) Elevated creatine kinase level: Status: Acute Problem details: Greater than 600 at admission. Received normal saline. (7) UTI (urinary tract infection): Status: Acute Problem details: -1 g Rocephin Q 24 as we await for culture and sensitivities (8) Rheumatoid arthritis: Status: Acute Problem details: Methotrexate weekly. Followed by Rheumatology. (9) Hypertension: Status: Acute Problem details: family says she does not have HTN, no longer on BP med DS: Summary Hospital Course Hospital Course: History of present illness: 86-year-old with a history of Parkinson's and Parkinson's dementia along with chronic neuropathy, rheumatoid arthritis, hypertension presents after falling at home. This is an unwitnessed fall. Time in date of injury is unknown. Her daughter who lives close by found her on the floor this morning. Injuries noted: 11/01/2022 she had a telemedicine follow-up visit with Dr. Olvera ([place]). They discussed her Parkinson's, hypertension, chronic neuropathy. ER COURSE: Imaged, labs, examined. 1 L normal saline fluid bolus. Admission for observation and need for a safe discharge plan needed. We treated her with IV fluids. Monitor her for possible secondary injuries which did not manifest during her hospital stay. Did find that she had a urinary tract infection which we started treatment for. Treated her with ceftriaxone empirically while awaiting results of urine culture. Creatine kinase was 677 on presentation and on date of discharge was down to 370. No acute kidney injury. Family had been planning to move the patient to a chcf facility prior to this incident. They had already made arrangements for this at the [facility]. Patient discharged from the hospital to the [facility]. Status at Discharge Functional status at discharge: uses cane/walker Overall status at discharge: patient is progressing back to baseline Time Spent with Patient Time attestation: Total time spent providing and/or coordinating discharge services: Time spent: Greater than 30 minutes Specific discharge activities: Reviewed with patient and her 2 daughters the patient condition, status, and patient and family goals for care. Answered their questions to their satisfaction. Exam Narrative: Exam Narrative: I assess the patient in her room and in the hallway. Alert and oriented to self, place, not so much to time or situation. Able to speak but having difficulties expressing herself meaningfully. Lungs clear to auscultation. Heart tones with regular rhythm. Abdomen benign. Ambulating in hallway with roller walker. Const: Vital Signs, click to edit/add: Vital Signs - 24 hr 12/13/22 15:37 12/13/22 20:26 12/13/22 23:50 Temperature 98.0 F Pulse Rate 79 82 Pulse Rate [Left A pical] Pulse Rate [Pulse Oximeter] 86 Respiratory Rate 16 Blood Pressure [Ri ght Arm] 149/79 H Pulse Oximetry 95 Oxygen Delivery Me thod Room Air 12/13/22 23:50 12/13/22 23:50 12/13/22 23:50 Temperature 98.2 F Pulse Rate Pulse Rate [Left A pical] 85 85 Pulse Rate [Pulse Oximeter] 89 89 Respiratory Rate 16 16 Blood Pressure [Ri ght Arm] 149/61 H Pulse Oximetry 94 94 Oxygen Delivery Me thod Room Air 12/14/22 03:35 12/14/22 07:00 12/14/22 07:00 Temperature 98.3 F Pulse Rate Pulse Rate [Left A pical] Pulse Rate [Pulse Oximeter] 81 77 Respiratory Rate 18 18 Blood Pressure [Ri ght Arm] 171/80 H Pulse Oximetry 94 95 Oxygen Delivery Me thod Room Air 12/14/22 07:00 12/14/22 07:00 Temperature 98.1 F Pulse Rate 77 Pulse Rate [Left A pical] Pulse Rate [Pulse Oximeter] 77 Respiratory Rate 18 Blood Pressure [Ri t Arm] 164/84 H Pulse Oximetry 95 Oxygen Delivery Me thod Room Air DS: Data Data Completed and Pending Labs on day of discharge: Labs from last 24 hours 12/14/22 06:39 WBC 10.00 RBC 4.14 Hgb 13.0 Hct 41.7 MCV 101 H MCH 31 MCHC 31 L Plt Count 288 Sodium 142 Potassium 3.7 Chloride 106 Carbon Dioxide 27 Anion Gap 9 BUN 8 Creatinine 0.5 Estimated Creat Clear 36.34 Estimated GFR 91 Glucose 123 H Calcium 8.7 Phosphorus 2.5 AST 50 H Total Creatine Kinase 370 H Albumin 3.9 Additional Comments Additional comments: 12/12/2022 CT scan scan of head and neck and chest x-ray demonstrated no acute abnormalities. Discharge Plan Discharge Disposition: [facility] [place] Date of Admission: 12/12/22 16:21 Attending Provider on Discharge: Hair Deras Primary Care Provider: Provider,Not a Local Condition: Improved Anticipated Discharge Date/Time: 12/14/22 10:30 Discharge Medications: New sennosides-docusate sodium [Stool Softener-Laxative] 8.6-50 mg Tablet 1 tab PO DAILY 30 Days Qty: 30 0RF cephalexin 500 mg capsule 500 mg PO TID Qty: 15 0RF Continued estradiol 0.01 % (0.1 mg/gram) cream 1 g vaginal .2X/WEEK PRN Rx Instructions: NEEDED methotrexate sodium 2.5 mg tablet 17.5 mg PO MO Rx Instructions: take 7 tablets once a week on Saturday omeprazole 20 mg tablet,delayed release (DR/EC) 20 mg PO DAILY multivitamin [Multiple Vitamins] Tablet 1 tab PO DAILY gabapentin 600 mg tablet 600 mg PO TID folic acid 1 mg tablet 1 mg PO DAILY duloxetine 20 mg capsule,delayed release(DR/EC) 20 mg PO BID carbidopa-levodopa 25-100 mg tablet 2 tab PO TID acetaminophen [8 Hour Pain Reliever] 650 mg tablet extended release 650 mg PO BID@12,21 Rx Instructions: LUNCH AND BEDTIME calcium carbonate-vitamin D3 [Calcium 500 + D] 500 mg-10 mcg (400 unit) tablet 1 tab PO DAILY clobetasol 0.05 % ointment 1 applic topical DAILY PRN Rx Instructions: NEEDED diclofenac sodium 1 % gel 4 g topical QID PRN PreserVision AREDS 2,148 mcg-113 mg-45 mg-17.4mg tablet 2 tab PO DAILY Rx Instructions: administer with AM and PM meals cephalexin 500 mg capsule 2,000 mg PO DIRECTED PRN Rx Instructions: BEFORE DENTAL APPOINTMENTS Discharge Orders: Discharge Order (Routine); Ordered 12/14/22 Ordered By: Hair Deras Activity Level: No Restrictions, Activity as Tolerated and Use Walker Discharge Diet: Regular Follow Up Appointments: Provider,Not a Local [Primary Care Provider] - Admit to: SNF Discharge Potential: Fair Length of Stay: 30-90 days Can use facility standing orders?: Yes Code Status: DNR/DNI Rehab Potential: Fair Therapy: Physical Therapy and Occupational Therapy Therapy Orders: Evaluate and Treat Oxygen: No Urinary Catheter: No Orders are good >30 days: Yes Signature: Hair Deras
== END 2022-12-14 11:40 ==
LOC: ED 16:01 → MEDSURG 12-13 08:20
PROVIDERS: Internal Medicine; Admitting Provider Family Medicine; Emergency Provider Family Medicine; Visit Provider Family Medicine
DX: N39.0 Urinary tract infection, site not specified (principal); S00.03XA Contusion of scalp, initial encounter; R74.8 Abnormal levels of other serum enzymes; F03.90 Unspecified dementia, unspecified severity, without behavioral disturbance, psychotic disturbance, mood disturbance, and anxiety; I10 Essential (primary) hypertension; G62.9 Polyneuropathy, unspecified; G20 Parkinson's disease; M06.9 Rheumatoid arthritis, unspecified; W19.XXXA Unspecified fall, initial encounter; Z96.659 Presence of unspecified artificial knee joint
CPT/HCPCS: 36415; 70450; 71046; 72125; 80048; 80053; 80069; 81001; 82077; 82550; 82803; 83735; 84100; 84443; 84450; 84484; 85025; 85027; 85610; 87086; 87631; 93005; 96361; 96365; 96366; 96367; 96368; 96375; 97112; 97116; 97161; 97165; 97530; 97535; 99284; 99285; G0378; A9270; C9113; J0131; J0696; J7030

== ENCOUNTER 2023-01-08 10:43 | Outpatient (REF) | payer MEDICARE, BC, SELFPAY ==
[2023-01-08 11:54] LABS: Chloride* 101 mmol/L (96-114); Potassium* 4.1 mmol/L (3.6-5.1); Sodium* 141 mmol/L (135-149)
[2023-01-08 11:57] LABS: Anion Gap 8 mEq/L (7-15); Blood Urea Nitrogen* 15 mg/dL (7-30); Carbon Dioxide* 32 mmol/L (20-32); Creatinine* 0.6 mg/dL (0.5-1.5); Estimated Glomerular Filt Rate 87 ml/min; Glucose* 104 mg/dL (60-115)
[2023-01-08 11:58] LABS: Calcium* 9.7 mg/dL (8.4-10.6)
== END 2023-01-08 10:44 | disposition home or self-care (01) ==
LOC: NPINS 10:43
PROVIDERS: Visit Provider Family Medicine
DX: M06.9 Rheumatoid arthritis, unspecified (principal)
CPT/HCPCS: 80048; 80204

== ENCOUNTER 2023-04-23 11:17 | Outpatient (REF) | payer MEDICARE, BC, SELFPAY ==
[2023-04-23 12:43] LABS: Albumin* 4.7 g/dL (3.3-5.0); Chloride* 100 mmol/L (96-114); Sodium* 141 mmol/L (135-149)
[2023-04-23 12:44] LABS: Potassium* 4.6 mmol/L (3.6-5.1)
[2023-04-23 12:46] LABS: Alanine Aminotransferase* 8 U/L (4-35); Alkaline Phosphatase* 80 U/L (40-150); Anion Gap 10 mEq/L (7-15); Aspartate Amino Transferase* 27 U/L (12-35); Bilirubin Total* 0.8 mg/dL (0.1-1.5); Blood Urea Nitrogen* 15 mg/dL (7-30); Calcium* 9.6 mg/dL (8.4-10.6); Carbon Dioxide* 31 mmol/L (20-32); Creatinine* 0.6 mg/dL (0.5-1.5); Estimated Glomerular Filt Rate 87 ml/min; Glucose* 106 mg/dL (60-115); Total Protein* 7.5 g/dL (6.0-8.3)
== END 2023-04-23 11:18 | disposition home or self-care (01) ==
LOC: NPINS 11:17
PROVIDERS: Visit Provider Nurse Practitioner Gerontology
DX: M06.9 Rheumatoid arthritis, unspecified (principal)
CPT/HCPCS: 80048; 80076

== ENCOUNTER 2023-07-16 13:59 | Outpatient (REF) | payer MEDICARE, BC, SELFPAY ==
[2023-07-16 15:38] LABS: Albumin* 4.5 g/dL (3.3-5.0); Chloride* 98 mmol/L (96-114)
[2023-07-16 15:39] LABS: Potassium* 4.3 mmol/L (3.6-5.1); Sodium* 140 mmol/L (135-149)
[2023-07-16 15:41] LABS: Anion Gap 10 mEq/L (7-15); Bilirubin Direct* 0.1 mg/dL (0.0-0.5); Carbon Dioxide* 32 mmol/L (20-32); Creatinine* 0.6 mg/dL (0.5-1.5); Estimated Glomerular Filt Rate 87 ml/min
[2023-07-16 15:42] LABS: Alanine Aminotransferase* 4 U/L (4-35); Alkaline Phosphatase* 72 U/L (40-150); Aspartate Amino Transferase* 23 U/L (12-35); Blood Urea Nitrogen* 16 mg/dL (7-30); Calcium* 9.7 mg/dL (8.4-10.6); Glucose* 67 mg/dL (60-115); Total Protein* 7.1 g/dL (6.0-8.3)
== END 2023-07-16 14:00 | disposition home or self-care (01) ==
LOC: NPINS 13:59
PROVIDERS: Visit Provider Internal Medicine Gastroenterology
DX: M06.00 Rheumatoid arthritis without rheumatoid factor, unspecified site (principal); Z79.899 Other long term (current) drug therapy
CPT/HCPCS: 80048; 80076

== ENCOUNTER 2023-07-25 14:01 | Outpatient (REF) | payer MEDICARE, BC, SELFPAY ==
[2023-07-25 14:14] LABS: Appearance Urine Clear (Clear); Bilirubin Urine Negative (Negative); Blood Urine Negative (Negative); Color Urine Yellow (Yellow); Glucose Urine Negative (Negative); Ketones Urine Negative (Negative); Leukocyte Esterase Urine Trace (Negative); Nitrite Urine Negative (Negative); Protein Urine Negative (Negative); Specific Gravity Urine 1.015 (1.000-1.030); Urobilinogen Urine 0.2 (0.2-1.0)
[2023-07-25 14:37] LABS: RBC Urine 0-2 (0-2); Squamous Epithelial Cell Urine Few (None-Few); WBC Urine 0-2 (0-5)
== END 2023-07-25 14:02 | disposition home or self-care (01) ==
LOC: NPINS 14:01
PROVIDERS: PCP Family Medicine; Visit Provider Nurse Practitioner Gerontology
DX: R35.0 Frequency of micturition (principal)
CPT/HCPCS: 81001; 87086

== ENCOUNTER 2023-10-15 12:27 | Outpatient (REF) | payer MEDICARE, BC, SELFPAY ==
[2023-10-15 13:29] LABS: Albumin* 4.9 g/dL (3.3-5.0); Chloride* 102 mmol/L (96-114); Sodium* 138 mmol/L (135-149)
[2023-10-15 13:30] LABS: Potassium* 4.7 mmol/L (3.6-5.1)
[2023-10-15 13:32] LABS: Alkaline Phosphatase* 66 U/L (40-150); Anion Gap 7 mEq/L (7-15); Aspartate Amino Transferase* 25 U/L (12-35); Bilirubin Direct* 0.2 mg/dL (0.0-0.5); Bilirubin Total* 0.9 mg/dL (0.1-1.5); Blood Urea Nitrogen* 17 mg/dL (7-30); Carbon Dioxide* 29 mmol/L (20-32); Creatinine* 0.6 mg/dL (0.5-1.5); Estimated Glomerular Filt Rate 87 ml/min; Glucose* 65 mg/dL (60-115); Total Protein* 7.4 g/dL (6.0-8.3)
[2023-10-15 13:33] LABS: Calcium* 9.7 mg/dL (8.4-10.6)
[2023-10-15 13:47] LABS: Alanine Aminotransferase* < 4 U/L (4-35)
== END 2023-10-15 12:28 | disposition home or self-care (01) ==
LOC: NPINS 12:27
PROVIDERS: PCP Family Medicine; Visit Provider Nurse Practitioner Gerontology
DX: M06.9 Rheumatoid arthritis, unspecified (principal)
CPT/HCPCS: 80048; 80076

== ENCOUNTER 2024-01-14 12:54 | Outpatient (REF) | payer MEDICARE, BC, SELFPAY ==
[2024-01-14 14:21] LABS: Albumin* 4.6 g/dL (3.3-5.0); Chloride* 101 mmol/L (96-114); Sodium* 140 mmol/L (135-149)
[2024-01-14 14:22] LABS: Potassium* 4.3 mmol/L (3.6-5.1)
[2024-01-14 14:23] LABS: Creatinine* 0.6 mg/dL (0.5-1.5); Estimated Glomerular Filt Rate 86 ml/min
[2024-01-14 14:24] LABS: Alanine Aminotransferase* 6 U/L (4-35); Alkaline Phosphatase* 60 U/L (40-150); Anion Gap 7 mEq/L (7-15); Aspartate Amino Transferase* 26 U/L (12-35); Bilirubin Direct* 0.2 mg/dL (0.0-0.5); Bilirubin Total* 0.8 mg/dL (0.1-1.5); Blood Urea Nitrogen* 14 mg/dL (7-30); Calcium* 9.6 mg/dL (8.4-10.6); Carbon Dioxide* 32 mmol/L (20-32); Glucose* 55 mg/dL (60-115); Total Protein* 7.1 g/dL (6.0-8.3)
== END 2024-01-14 12:55 | disposition home or self-care (01) ==
LOC: NPINS 12:54
PROVIDERS: PCP Family Medicine; Visit Provider Nurse Practitioner Gerontology
DX: M06.9 Rheumatoid arthritis, unspecified (principal)
CPT/HCPCS: 80048; 80076

== ENCOUNTER 2024-04-02 14:55 | Outpatient (REF) | payer MEDICARE, BC, SELFPAY ==
[2024-04-02 15:43] LABS: Appearance Urine Clear (Clear); Bilirubin Urine Negative (Negative); Blood Urine Negative (Negative); Color Urine Yellow (Yellow); Glucose Urine Negative (Negative); Ketones Urine Negative (Negative); Leukocyte Esterase Urine Trace (Negative); Nitrite Urine Negative (Negative); Protein Urine Negative (Negative); Specific Gravity Urine 1.015 (1.000-1.030); Urobilinogen Urine 0.2 (0.2-1.0)
[2024-04-02 16:26] LABS: Bacteria Urine Few; RBC Urine 0-2 (0-2); WBC Urine 0-2 (0-5)
== END 2024-04-02 14:56 | disposition home or self-care (01) ==
LOC: NPINS 14:55
PROVIDERS: PCP Family Medicine; Referring Provider Nurse Practitioner Gerontology; Visit Provider Nurse Practitioner Gerontology
DX: R30.0 Dysuria (principal)
CPT/HCPCS: 81001; 87086

== ENCOUNTER 2024-04-06 12:17 | Outpatient (REF) | payer MEDICARE, BC, SELFPAY ==
[2024-04-06 12:44] LABS: Basophils Absolute Auto 0.05 K/uL (0.00-0.30); Eosinophils Absolute Auto 0.13 K/uL (0.00-0.50); Eosinophils Percent Auto 2.6 % (0.0-7.0); Hematocrit 40.4 % (33.0-51.0); Hemoglobin* 12.2 gm/dL (12.0-16.0); Immature Granulocytes Abs Auto 0.01 K/uL (0.00-0.30); Immature Granulocytes Pct Auto 0.2 %; Lymphocytes Percent Auto 15.4 % (20-44); Mean Corpuscular HGB Conc 30 gm/dL (32-36); Mean Corpuscular Hemoglobin 30 pg (26-34); Mean Corpuscular Volume 100 fL (80-100); Monocytes Percent Auto 12.5 % (0.0-11.0); Neutrophils Absolute Auto 3.46 K/uL (1.7-7.0); Neutrophils Percent Auto 68.3 % (42.0-72.0); Platelet Count* 322 K/uL (140-440); Red Blood Count 4.03 m/uL (4.00-5.20); White Blood Count* 5.06 K/uL (4.50-11.00)
[2024-04-06 13:00] LABS: Slide Review Reflex No
[2024-04-06 13:03] LABS: Chloride* 104 mmol/L (96-114)
[2024-04-06 13:04] LABS: Potassium* 4.2 mmol/L (3.6-5.1); Sodium* 139 mmol/L (135-149)
[2024-04-06 13:06] LABS: Creatinine* 0.5 mg/dL (0.5-1.5); Estimated Glomerular Filt Rate 90 ml/min
[2024-04-06 13:07] LABS: Anion Gap 4 mEq/L (7-15); Blood Urea Nitrogen* 12 mg/dL (7-30); Calcium* 9.1 mg/dL (8.4-10.6); Carbon Dioxide* 31 mmol/L (20-32); Glucose* 92 mg/dL (60-115)
== END 2024-04-06 12:18 | disposition home or self-care (01) ==
LOC: NPINS 12:17
PROVIDERS: PCP Family Medicine; Visit Provider Nurse Practitioner Gerontology
DX: Z91.81 History of falling (principal)
CPT/HCPCS: 80048; 84443; 85025

== ENCOUNTER 2024-07-21 11:47 | Outpatient (REF) | payer MEDICARE, BC, SELFPAY ==
[2024-07-21 13:29] LABS: Albumin* 4.8 g/dL (3.3-5.0); Chloride* 98 mmol/L (96-114); Sodium* 140 mmol/L (135-149)
[2024-07-21 13:30] LABS: Potassium* 4.1 mmol/L (3.6-5.1)
[2024-07-21 13:32] LABS: Alanine Aminotransferase* 9 U/L (4-35); Alkaline Phosphatase* 55 U/L (40-150); Anion Gap 9 mEq/L (7-15); Aspartate Amino Transferase* 23 U/L (12-35); Bilirubin Direct* 0.3 mg/dL (0.0-0.5); Bilirubin Total* 0.9 mg/dL (0.1-1.5); Blood Urea Nitrogen* 15 mg/dL (7-30); Carbon Dioxide* 33 mmol/L (20-32); Creatinine* 0.7 mg/dL (0.5-1.5); Estimated Glomerular Filt Rate 83 ml/min; Total Protein* 7.4 g/dL (6.0-8.3)
[2024-07-21 13:33] LABS: Calcium* 9.6 mg/dL (8.4-10.6); Glucose* 72 mg/dL (60-115)
== END 2024-07-21 11:48 | disposition home or self-care (01) ==
LOC: NPINS 11:47
PROVIDERS: PCP Family Medicine; Visit Provider Nurse Practitioner Gerontology
DX: M06.9 Rheumatoid arthritis, unspecified (principal)
CPT/HCPCS: 80048; 80076

== ENCOUNTER 2024-09-30 11:44 | Outpatient (REF) | payer MEDICARE, BC, SELFPAY ==
[2024-09-30 13:16] LABS: Appearance Urine Clear (Clear); Bilirubin Urine Negative (Negative); Blood Urine Negative (Negative); Color Urine Yellow (Yellow); Glucose Urine Negative (Negative); Ketones Urine Negative (Negative); Leukocyte Esterase Urine Negative (Negative); Nitrite Urine Negative (Negative); Protein Urine Negative (Negative); Specific Gravity Urine 1.015 (1.000-1.030); Urobilinogen Urine 0.2 (0.2-1.0)
[2024-09-30 14:03] LABS: RBC Urine 0-2 (0-2); WBC Urine 0-2 (0-5)
--- OUTSIDE RECORDS SUMMARY | 2024-09-30 16:08 | XMS_ITS | Clinical Summary ---
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 Active gabapentin (NEURONTIN) 300 mg capsule Take 300 mg by mouth at bedtime. Active methotrexate (RHEUMATREX) 2.5 mg tablet Take 15 mg by mouth once weekly. Active omeprazole (PRILOSEC) 20 mg Delayed-Releas e capsule Take 20 mg by mouth once daily before evening meal. Active calcium carbonate-ryland min D3, 600 mg-400 unit, 600 mg-10 mcg (400 unit) tablet Take 1 tablet by mouth 2 times daily with meals. Active clobetasol cream 0.05% (TEMOVATE) 0.05 % cream Apply topically to affected area(s) 2 times daily if needed. 3 8 Active estradioL (ESTRACE) 0.01% (0.1 mg/g) vaginal cream Insert 2 g into the vagina 3 (three) times a week. Active hydroCHLOROthi azide (HCTZ) 25 mg tablet Take 1 tablet by mouth once daily. 0 0 Active multivitamins- minerals-lutei n (MULTIVITAMIN 50 PLUS) tab tablet Take 1 tablet by mouth once daily. 0 0 Active diclofenac topical (VOLTAREN) 1 % gel APPLY 2GM TO SMALL JOINT & 4GM TO KNEES FOUR TIMES DAILY NEEDED FOR PAINFUL JOINT 1 Active ibuprofen (ADVIL; MOTRIN) 400 mg tablet Take 1 Tablet (400 mg) by mouth every 6 hours if needed for Pain. Maximum of 3200 mg in 24 hours. 2 Active acetaminophen (TYLENOL) 325 mg tablet Take 1-2 Tablets (325-650 mg) by mouth every 4 hours if needed. Max acetaminophen dose: 4000mg in 24 hrs. 30 Tablet 2 Active Active Problems Problem Noted Date Diagnosed Date Hypokalemia due to loss of potassium 07/20/2017 Rheumatoid arthritis involvi ng multiple sites with positive rheumatoid factor 07/19/2017 HTN (hypertension) 07/19/2017 Diverticulitis 07/18/2017 Nausea and vomiting 07/18/2017 Osteoarthritis of knee 03/02/2015 Social History Tobacco Use Types Packs/Day Years Used Date Smoking Tobacco: Former Cigarettes Q uit: 07/19/1999 Smokeless Tobacco: Never Tobacco Cessation:Counseling Given: Yes Alcohol Use Standard Drinks/Week Comments Yes 0 (1 standard drink = 0.6 oz pur e alcohol) 1-2 per month Social Connections Answer Date Recorded Frequency of Communication with Friends and Fami ly Not on file 04/15/2021 Financial Resource Strain Answer Date R ecorded Difficulty of Paying Living Expenses Not on file 04/15/2021 Difficulty of Paying Living Expenses Not on file 04/15/2021 Comments No Sex and Gender Information Value Date Recorded Sex Assigned at Not on file 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 Gender Identity Not on file Sexual Orientation Not on file Obstetrics History Last Filed Vital Signs Vital Sign Reading Time Taken Comments Blood Pressure 147/64 07/31/2021 4:20 PM CDT Pulse 79 07/31/2021 4:20 PM CDT Temperature 36.8 C (98.2 F) 07/31/2021 2:55 PM CDT Respiratory Rate 18 07/31/2021 4:20 PM CDT Oxygen Saturation 95% 07/31/2021 4:20 PM CDT Inhaled Oxygen Concentration - - Weight 63 kg (138 lb 12.8 oz) 07/31/2021 11:13 A M CDT Height 166.9 cm (5' 5.71) 07/31/2021 11:13 AM C DT Body Mass Index 22.6 07/31/2021 11:13 AM CDT Plan of Treatment Health Maintenance Due Date Last Done Comments Tdap 12/15/1946 Depression screening for age 12+ 1947 BMI (ht and wt on same day) for age 18+ 12/15/1953 Zoster (shingles) series for age 50+ (1 of 2) 12/15/1954 Tetanus booster 1955 Pneumococcal series for age 50+ (1 of 1 - PCV) 12/15/1985 DEXA/DXA scan for age 65+ 12/15/2000 Medicare Wellness for age 65+ 12/15/2000 RSV vaccine for adults or (1 - 1-dose 75+ series) 12/15/2010 COVID-19 vaccine series ( season) 2023 01/23/2022, 08/14/2021, 12/28/2020, Additional history exists Influenza Vaccine (Season Ended) 2024 Hepatitis B series for 19+ Aged Out N o longer eligible based on patient's age to complete this topic Insurance MEDICARE PART B HB ONLY [facility] MEDICARE PART B HB ONLY [facility] MEDICARE PART A HB ONLY MEDICARE PB ONLY Advance Directives Documents on File Type Date Recorded Patient Grades 1 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 6 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 Healthcare Directive 05/30/2016 12:00 AM * Full Code (Latest Code Status on File) Date Activated Date Inactivated Comments 07/31/2021 10:56 AM 07/31/2021 6:51 PM Question Answer Comments Code Status Discussion: Reviewed Preferences * DNR Date Activated Date Inactivated Comments 07/18/2017 6:27 PM 07/20/2017 11:25 AM Question Answer Comments Code Status Discussion: Discussed * Full Code Date Activated Date Inactivated Comments 05/30/2016 8:03 AM 05/30/2016 12:49 PM * Full Code Date Activated Date Inactivated Comments 05/30/2016 7:16 AM 05/30/2016 8:03 AM * Full Code Date Activated Date Inactivated Comments 02/24/2015 9:17 AM 02/24/2015 3:46 PM Care Teams Aircraft Shipping Checker Relationship Specialty Start Date End Date Mirlande Seals NP PCP - General Nurse Practitioner 07/18/21
== END 2024-09-30 11:45 | disposition home or self-care (01) ==
LOC: NPINS 11:44
PROVIDERS: PCP Family Medicine; Visit Provider Family Medicine
DX: N39.0 Urinary tract infection, site not specified (principal)
CPT/HCPCS: 81001; 87086

== ENCOUNTER 2024-10-14 13:19 | Outpatient (REF) | payer MEDICARE, BC, SELFPAY ==
[2024-10-14 16:40] LABS: Albumin* 4.5 g/dL (3.3-5.0); Chloride* 98 mmol/L (96-114); Potassium* 4.6 mmol/L (3.6-5.1); Sodium* 137 mmol/L (135-149)
[2024-10-14 16:42] LABS: Anion Gap 9 mEq/L (7-15); Blood Urea Nitrogen* 15 mg/dL (7-30); Carbon Dioxide* 30 mmol/L (20-32); Creatinine* 0.6 mg/dL (0.5-1.5); Estimated Glomerular Filt Rate 86 ml/min
[2024-10-14 16:43] LABS: Alanine Aminotransferase* 5 U/L (4-35); Alkaline Phosphatase* 53 U/L (40-150); Aspartate Amino Transferase* 27 U/L (12-35); Bilirubin Direct* 0.2 mg/dL (0.0-0.5); Bilirubin Total* 0.9 mg/dL (0.1-1.5); Calcium* 9.7 mg/dL (8.4-10.6); Glucose* 59 mg/dL (60-115); Total Protein* 7.0 g/dL (6.0-8.3)
--- OUTSIDE RECORDS SUMMARY | 2024-10-15 00:14 | XMS_ITS | Clinical Summary ---
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 Gender Identity Not on file Sexual Orientation [...] Health Maintenance Due Date Last Done Comments Tetanus booster 12/15/1946 Depression screening for age 12+ 1947 BMI (ht and wt on same day) for age 18+ 12/15/1953 Zoster (shingles) series for age 50+ (1 of 2) 12/15/1954 Pneumococcal series for age 50+ (1 of 1 - PCV) 12/15/1985 DEXA/DXA scan for age 65+ 12/15/2000 Medicare Wellness for age 65+ 12/15/2000 RSV vaccine for adults or (1 - 1-dose 75+ series) 12/15/2010 COVID-19 vaccine series ( season) 2023 01/23/2022, 08/14/2021, 12/28/2020, Additional history exists Influenza Vaccine (#1) 2024 Hepatitis B series for 19+ Aged Out N o longer eligible based on patient's age to complete this topic Insurance MEDICARE PART B HB ONLY [facility] MEDICARE PART B HB ONLY [facility] MEDICARE PART A HB ONLY MEDICARE PB ONLY Advance Directives Documents on File Type Date Recorded 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
== END 2024-10-14 13:20 | disposition home or self-care (01) ==
LOC: NPINS 13:19
PROVIDERS: PCP Family Medicine; Referring Provider Family Medicine; Visit Provider Family Medicine
DX: M06.9 Rheumatoid arthritis, unspecified (principal)
CPT/HCPCS: 80048; 80076